=== PATIENT | female | born 1990 | race Caucasian/White ===

== ENCOUNTER 2017-10-21 20:10 | Emergency (ER) | payer OTHER, SELFPAY ==
[2017-10-21 20:11] VITALS: BP 144/85; PULSE 116; RESP 14; TEMP 36.2; O2SAT 96; BMI 31.6
--- NOTE | 2017-10-21 21:05 | ED.DCSUM_ITS ---
- ER Visit Summary Date of Service: 10/21/17 Chief Complaint: Right third finger laceration History of Present Illness: The patient is a 27 F who has a laceration on the right third finger. 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 Her last tetanus is unknown. Physical Examination: Vital signs reviewed. She has a 1.25 cm laceration on the right third finger between the DIP and PIP joints. Bleeding controlled Test Results: None performed Emergency Department Course and Treatment: I was able to look back in her last tetanus was in 2014. Lidocaine was used to anesthetize the area. 5, 5-0 simple nylon sutures were placed. Patient will have these out in 7-10 days Treatment Plan: [] Disposition: Discharge Impression: Right third finger laceration, 1.25 cm Laceration repair by ED physician This note was generated with [facility] dictation software. It may contain incorrect words, spelling, and punctuation that were not noted in review of the chart prior to signing ED Disposition - Plan for ED Patient: Chief Complaint: Laceration Referrals: Care Physician,No Primary [Primary Care Provider] -
--- NOTE | 2017-10-21 21:05 | ED.DEP ---
ED Disposition - Plan for ED Patient: Disposition: Home or Assisted Living Chief Complaint: Laceration Instructions: ED Laceration Hand Referrals: Care Physician,No Primary [Primary Care Provider] - Corporate,[facility] [GROUP OF PHYSICIANS] -
== END 2017-10-21 21:21 | disposition home or self-care (01) ==
PROVIDERS: Emergency Provider Emergency Medicine
DX: S61.212A Laceration without foreign body of right middle finger without damage to nail, initial encounter (principal); W26.8XXA Contact with other sharp object(s), not elsewhere classified, initial encounter; Y93.9 Activity, unspecified; Y92.9 Unspecified place or not applicable; Z72.0 Tobacco use
CPT/HCPCS: 12001; 99283

== ENCOUNTER 2017-10-28 21:32 | Emergency (ER) | payer MEDICAID, SELFPAY ==
[2017-10-28 21:33] VITALS: BP 112/63; PULSE 64; RESP 18; TEMP 36.8; O2SAT 97; BMI 31.6
--- NOTE | 2017-10-28 21:50 | ED.VISSUMM ---
- ER Visit Summary Date of Service: 10/28/17 Chief Complaint: Suture removal History of Present Illness: The patient is a 27 F with no primary care physician. 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 She reports that they itch and she would like them out. She denies any drainage, redness, fever, or other infectious complaints. Physical Examination: Vitals: Stable. Afebrile. General: Well-nourished and well-developed. Head: Normocephalic atraumatic. Neck: Supple, no lymphadenopathy. No JVD. Nontender. Cardiovascular: Regular rate and rhythm. No murmurs. Respiratory: No respiratory distress. Clear to auscultation bilaterally. Abdominal: Soft, nontender, nondistended, normal bowel sounds. No guarding, rebound, or peritoneal signs. Back: Nontender. Extremities: Sutures on the dorsum of her right middle finger DIP joint. There is no erythema, soft tissue swelling, or drainage. Skin: Normal color, no rash. Neurologic: Alert and oriented ?3. Cranial nerves II through XII are intact. Normal strength and sensation. Psych: Normal affect. Emergency Department Course and Treatment: I discussed with the patient the likely possibility that her wound will open if we remove these since it is over a joint. I suggested that she wait another week to have these removed. Treatment Plan: Patient will be discharged instructions follow-up her primary care physician in 1 week for suture removal. Disposition: To home in improved and stable condition. Impression: 1. Wound check right middle finger. This note was generated with [employer] dictation software. It may contain incorrect words, spelling, and punctuation that were not noted in review of the chart prior to signing ED Disposition - Plan for ED Patient: Disposition: Home or Assisted Living Chief Complaint: Suture Remv Instructions: ED Sutr Check No Infec Referrals: Corine Jacobson [NON-STAFF] - 7 Days for suture removal
[2017-10-28 22:13] VITALS: RESP 16
== END 2017-10-28 22:13 | disposition home or self-care (01) ==
LOC: ED 22:00
PROVIDERS: Emergency Provider Emergency Medicine
DX: Z48.01 Encounter for change or removal of surgical wound dressing (principal); Z72.0 Tobacco use
CPT/HCPCS: 99282

== ENCOUNTER 2017-11-04 15:57 | Emergency (ER) | payer MEDICAID, SELFPAY ==
[2017-11-04 15:58] VITALS: BP 151/97; PULSE 103; RESP 16; TEMP 37.1; O2SAT 97; BMI 35.9
--- NOTE | 2017-11-04 16:19 | ED.DCSUM_ITS ---
- ER Visit Summary Date of Service: 11/04/17 Chief Complaint: Suture removal History of Present Illness: The patient is a 27 F patient is here for suture removal. 2 weeks ago she had sutures in her right third finger. There is been no drainage. It is healing well Physical Examination: Vital signs reviewed. Right hand exam reveals right middle finger sutures numbering 5 over the distal DIP joint. No pain. Test Results: None indicated Emergency Department Course and Treatment: Sutures will be removed by nursing. Patient will follow-up as needed Treatment Plan: [] Disposition: Discharge Impression: Suture removal This note was generated with [employer] dictation software. It may contain incorrect words, spelling, and punctuation that were not noted in review of the chart prior to signing ED Disposition - Plan for ED Patient: Chief Complaint: Suture Remv Referrals: Care Physician,No Primary [Primary Care Provider] -
--- NOTE | 2017-11-04 16:19 | ED.DEP ---
ED Disposition - Plan for ED Patient: Disposition: Home or Assisted Living Chief Complaint: Suture Remv Instructions: ED Wound Check Sutr Remove No Infec Referrals: Care Physician,No Primary [Primary Care Provider] -
== END 2017-11-04 16:54 | disposition home or self-care (01) ==
PROVIDERS: Emergency Provider Emergency Medicine
DX: Z48.02 Encounter for removal of sutures (principal)
CPT/HCPCS: 99283

== ENCOUNTER 2017-12-07 00:47 | Emergency (ER) | payer MEDICAID, SELFPAY ==
[2017-12-07 00:48] VITALS: BP 134/95; PULSE 99; RESP 15; TEMP 36.9; O2SAT 99; BMI 32.5
[2017-12-07] MEDS: 0.9% Normal Saline 1,000 ML 1000 ML IV (01:25)
[2017-12-07] MEDS: Ketorolac 30 MG/ML Syringe IV (01:25)
[2017-12-07 01:38] LABS: Red Blood Cells-Urine 0 SEEN /hpf (0-5); White Blood Cells 0 SEEN /hpf (0-5)
[2017-12-07 01:40] LABS: Color, Urine Yellow (Yellow); Glucose, Dipstick Normal (Normal); Ketone-Dipstick Negative (Negative); Leukocyte Esterase-Dipstick Negative /ul (Negative); Nitrite-Dipstick Negative (Negative); Occult Blood-Urine Negative /ul (Negative); Protein-Dipstick Negative (Negative); Specific Gravity, Urine 1.015 (1.002-1.030); Urine Bilirubin Dipstick Negative (Negative); Urine Clarity Clear (Clear); Urine Urobilinogen Normal (Normal)
[2017-12-07 01:42] LABS: Internal QC Validated? YES +Cl - CLEAR BKGD
[2017-12-07 01:42] LABS: Absolute Lymphocyte Count 1.65 X10^3/ul (0.83-4.51); Absolute Neutrophil Count 6.6 X10^3/uL (2.0-7.7); Basophil# 0.05 X10^3/uL; Basophil% 0.6 % (0-1); Eosinophil# 0.02 X10^3/uL; Eosinophils% 0.2 % (0-5); Hematocrit 40.7 % (37-47); Lymphocyte # 1.65 X10^3/ul (4.0); Lymphocyte % 18.2 % (19-41); Mean Corp Hgb Conc 34.4 g/gl (32-36); Mean Corpuscular Hgb 31.2 pg (27.0-32.0); Mean Corpuscular Volume 90.6 fL (81-99); Mean Platelet Vol. 11.2 fl (6.2-12.0); Monocyte# 0.67 X10^3/uL; Monocyte% 7.4 % (0-10); Neutrophil # 6.62 X10^3/uL (2.7-7.7); Neutrophil % 72.9 % (47-70); Platelet Count 293 K/mm3 (150-450); RBC Distribution Width CV 14.3 % (11.6-14.6); RBC Distribution Width SD 47.2 fl (35.1-43.9); Red Blood Count 4.49 M/mm3 (4.2-5.4); White Blood Count 9.1 K/mm3 (4.4-11.0)
[2017-12-07 01:43] LABS: POSITIVE COUNT NO; POSITIVE DIFFERENTIAL NO; POSITIVE MORPHOLOGY NO
[2017-12-07 01:43] LABS: Pregnancy, Urine Negative Negative
[2017-12-07 01:47] LABS: Bacteria RARE /hpf (None Seen); Mucous, Urine 1+ /hpf (<or=2+); Squamous Epithelial Cells - UA 0-5 SEEN /hpf (5-10)
[2017-12-07 01:57] LABS: Anion Gap 6 (5-15); BUN 9 mg/dL (7-18); BUN/Creat Ratio 12.9 RATIO (10-20); Calcium,Total 8.6 mg/dL (8.5-10.1); Chloride 106 mmol/L (98-107); EST Glomerular Filtration Rate 107 mL/min (>60); Est Glom Filt Rate - Afr Amer 129 mL/min (>60); Estimated Creatinine Clearance 103.32 ml/min; Glucose 116 mg/dL (74-106); Potassium 4.3 mmol/L (3.5-5.1); Sodium Level 140 mmol/L (136-145)
--- NOTE | 2017-12-07 02:53 | ED.VISSUMM ---
- ER Visit Summary Date of Service: 12/07/17 Chief Complaint: [Right flank pain] History of Present Illness: The patient is a 27 F [the presents with intermittent right flank pain she states radiating around to her right abdomen continuously for the last several hours. She denies any fall or trauma. No hematuria or frequency or dysuria. No fevers. Patient overall appears well and nontoxic. No other complaints.] Physical Examination: [General: The patient appears well and in no apparent distress. Patient is resting comfortably on cart. Skin: Warm, dry, no pallor noted. No rash. Head: Normocephalic, atraumatic Neck: Supple, nontender. ENT: Moist mucus membranes, pharynx within normal limits. Cardiovascular: Regular Rate and Rhythm, no gallups or rubs Respiratory: Patient is in no distress, no accessory muscle use, lungs are clear to auscultation, no wheezing, rales or rhonchi Musculoskeletal: normal ROM, no deformity, no tenderness, no swelling. 2+ radial and DP pulses symmetric. GI: No tenderness to palpation, no masses appreciated. No rebound, guarding, or rigidity noted. No hernia or mass. No pulsatile mass. No right lower quadrant tenderness. Back: Right paraspinal lumbar tenderness on exam only. No spinal tenderness. No CVA tenderness. Neurological: A&O, normal strength and sensation. 5/5 bilateral lower extremity strength intact. Sensation normal. Gait normal. Psychiatric: Cooperative] Test Results: [Bloodwork overall unremarkable. Urinalysis not consistent with infection. No significant red cells. test negative. CT imaging of the abdomen and pelvis without contrast shows no acute process.] Emergency Department Course and Treatment: [Patient given fluids and pain medication here with improvement of symptoms. CT imaging shows no acute process. Blood work and urinalysis overall unremarkable. On reevaluation at 0250 she is resting quietly and feels improved. Abdominal exam remains soft, nontender, and nondistended. Her pain is reproducible with movement of her torso. I feel it may be consistent with musculoskeletal etiology. I described abdominal pain return precautions and she will follow closely with her primary provider. Patient understands and is agreeable with this plan of care. Patient was discharged home in stable and improved condition.] Treatment Plan: [See above] Disposition: [Discharge home, stable and improved condition] Impression: [Acute right flank pain -improved] This note was generated with [employer] dictation software. It may contain incorrect words, spelling, and punctuation that were not noted in review of the chart prior to signing ED Disposition - Plan for ED Patient: Disposition: Home or Assisted Living Chief Complaint: Flank Pain Instructions: ED Flank Pain Uncertain Cause Referrals: Codi Honeycutt MD [STAFF PHYSICIAN] -
[2017-12-07 02:58] VITALS: RESP 14
== END 2017-12-07 03:13 | disposition home or self-care (01) ==
PROVIDERS: Emergency Provider Emergency Medicine
DX: R10.9 Unspecified abdominal pain (principal); E66.9 Obesity, unspecified; M54.9 Dorsalgia, unspecified
CPT/HCPCS: 74176; 80048; 81001; 81025; 85025; 96361; 96374; 99283; J7030

== ENCOUNTER 2018-03-19 21:00 | Emergency (ER) | payer MEDICAID, SELFPAY ==
[2018-03-19 21:02] VITALS: BP 135/109; PULSE 99; RESP 16; TEMP 37.1; O2SAT 98; BMI 31.6
--- NOTE | 2018-03-19 21:11 | ED.VISSUMM ---
- ER Visit Summary Date of Service: 03/19/18 Chief Complaint: [Cough] History of Present Illness: The patient is a 27 F [presents with a cough that started 2 weeks ago. Patient coughing up green and yellow phlegm. Patient denies any fever, chills, or sweats. Patient states that everybody at work is been sick with similar symptoms. Patient denies any shortness of breath. She denies any sore throat or ear pain. She denies any chest pain.] Physical Examination: [HEENT-PERRLA, EOMI. Cranial nerves II through XII grossly intact. TMs clear. Mucous membranes moist. No adenopathy. Cardiovascular-regular rate and rhythm without murmur or ectopy Lungs-clear to auscultation, chest wall stable without crepitus or subcu emphysema Abdomen-normoactive bowel sounds, soft, nontender, no rebound or rigidity, no peritoneal signs. Extremities-intact ?4, normal range of motion, normal pulses, atraumatic] Test Results: [None indicated] Emergency Department Course and Treatment: [Patient was started on Zithromax] Treatment Plan: [Patient will be treated Zithromax and Tessalon Perles given that she is had symptoms for over 2 weeks] Disposition: [Discharged home in stable condition. 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 Patient advised to return if increasing shortness of breath or condition should worsen anyway.] Impression: [Bronchitis] This note was generated with [employer] dictation software. It may contain incorrect words, spelling, and punctuation that were not noted in review of the chart prior to signing ED Disposition - Plan for ED Patient: Chief Complaint: Cold Sx Referrals: Care Physician,No Primary [Primary Care Provider] -
--- NOTE | 2018-03-19 21:12 | ED.DEP ---
ED Disposition - Plan for ED Patient: Chief Complaint: Cold Sx Instructions: ED Upper Resp Infec Abx Tx Prescriptions: Azithromycin [Zithromax] 250 mg PO DAILY #4 tab Benzonatate [Tessalon Perle] 200 mg PO TID PRN PRN #20 cap PRN Reason: Cough Referrals: Care Physician,No Primary [Primary Care Provider] - Wild Oden DO [NON CLINICAL AFFILIATE] - 5-7 Days
[2018-03-19 21:19] VITALS: PULSE 99; RESP 18
[2018-03-19] MEDS: Azithromycin 250 MG Tablet 500 MG PO (21:19)
--- OUTSIDE RECORDS SUMMARY | 2018-05-15 04:46 | XMS RPT_ITS ---
:1990 Author Organization [facility] Care Team Providers Name Role Phone Primay Care Physicia, No Primary Care Unavailable Wesley Blair Attending Unavailable Primay Care Physicia, No Primary Care Unavailable Danny Canales Attending Unavailable Primay Care Physicia, No Primary Care Unavailable Wesley Blair Attending Unavailable Primay Care Physicia, No Primary Care Unavailable Homar Garcia Attending Unavailable Primay Care Physicia, No Primary Care Unavailable Oksana Caruso Attending Unavailable PROBLEMS PROBLEMS DATE TYPE CONDITION / CODE ATTENDING STATUS SOURCE 11/05/2017 Unknown Z48.02 - Danny Canales Active [place] Encounter for Community removal of Hospital sutures / Repository Z48.02(ICD-10) 10/29/2017 Unknown S61.212A - Wesley Blair Active [place] Laceration Community without foreign Hospital body of right Repository middle finger without damage to nail, initial encounter / S61.212A(ICD-10) PROCEDURES PROCEDURES No Procedure Records FoundRESULTS RESULTS DISCHARGE INSTRUCTION Observed: 03/19/2018 Status: F Source: [place] 9:13 PM [facility] REPOSITORY [facility] Medical Records Department [address] [place] [address] Discharge Instruction 03/19/182111 MR#: [id number] Acct: [id number] Name: KERI LOPEZ Rep #: [id number] : 1990 From: Oksana Caruso DO PCP: Care Physician, No Primary Status: PRE ER ED Disposition - Plan for ED Patient: Chief Complaint: Cold Sx Instructions: ED Upper Resp Infec Abx Tx Prescriptions: Azithromycin [Zithromax] 250 mg PO DAILY #4 tab Benzonatate [Tessalon Perle] 200 mg PO TID PRN PRN #20 cap PRN Reason: Cough Referrals: Care Physician,No Primary [Primary Care Provider] - Wild Oden DO [NON CLINICAL AFFILIATE] - 5-7 Days What to do if you have Problems For any increased pain, shortness of breath, bleeding, nausea or vomiting, chest pain, or any unexpected problems, contact your Primary Care Provider. Call [facility] ([phone]) or report to the closest Emergency Room. Call 911 if necessary. 03/19/182112 <Electronically signed by Oksana Caruso DO> Date Oksana Caruso DO Cosigner Signature (If Indicated): Date CC: No Primary Care Physician EMERGENCY DEPARTMENT Observed: 03/19/2018 Status: F Source: [place] SUMMARY 9:12 PM [facility] [place] [facility] Medical Records Department [address] [place] [address] Emergency Department Summary 03/19/182110 MR#: [id number] Acct: [id number] Name: KERI LOPEZ Rep #: [id number] : 1990 From: Oksana Caruso DO PCP: Care Physician, No Primary Status: PRE ER - ER Visit Summary Date of Service: 03/19/18 Chief Complaint: [Cough] History of Present Illness: The patient is a 27 F [presents with a cough that started 2 weeks ago. Patient coughing up green and yellow phlegm. Patient denies any fever, chills, or sweats. Patient states that everybody at work is been sick with similar symptoms. Patient denies any shortness of breath. She denies any sore throat or ear pain. She denies any chest pain.] Physical Examination: [HEENT-PERRLA, EOMI. Cranial nerves II through XII grossly intact. TMs clear. Mucous membranes moist. No adenopathy. Cardiovascular-regular rate and rhythm without murmur or ectopy Lungs-clear to auscultation, chest wall stable without crepitus or subcu emphysema Abdomen-normoactive bowel sounds, soft, nontender, no rebound or rigidity, no peritoneal signs. Extremities-intact 4, normal range of motion, normal pulses, atraumatic] Test Results: [None indicated] Emergency Department Course and Treatment: [Patient was started on Zithromax] Treatment Plan: [Patient will be treated Zithromax and Tessalon Perles given that she is had symptoms for over 2 weeks] Disposition: [Discharged home in stable condition. Patient referred to primary care physician diamond setter apprentice for no doc to follow-up within next 5-7 days. Patient advised to return if increasing shortness of breath or condition should worsen anyway.] Impression: [Bronchitis] This note was generated with Bandspeed dictation software. It may contain incorrect words, spelling, and punctuation that were not noted in review of the chart prior to signing ED Disposition - Plan for ED Patient: Chief Complaint: Cold Sx Referrals: Care Physician,No Primary [Primary Care Provider] - What to do if you have Problems For any increased pain, shortness of breath, bleeding, nausea or vomiting, chest pain, or any unexpected problems, contact your Primary Care Provider. Call [facility] ([phone]) or report to the closest Emergency Room. Call 911 if necessary. 03/19/182111 <Electronically signed by Oksana Caruso DO> Date Oksana Caruso DO Cosigner Signature (If Indicated): Date CC: No Primary Care Physician EMERGENCY DEPARTMENT Observed: 12/07/2017 Status: F Source: [place] SUMMARY 2:57 AM [facility] [place] [facility] Medical Records Department [address] [place] [address] Emergency Department Summary 12/07/17 0253 MR#: [id number] Acct: [id number] Name: KERI LOPEZ Rep #: [id number] : 1990 27 From: Foreign Garcia MD PCP: Care Physician, No Primary Status: REG ER - ER Visit Summary Date of Service: 12/07/17 Chief Complaint: [Right flank pain] History of Present Illness: The patient is a 27 F [the presents with intermittent right flank pain she states radiating around to her right abdomen continuously for the last several hours. She denies any fall or trauma. No hematuria or frequency or dysuria. No fevers. Patient overall appears well and nontoxic. No other complaints.] Physical Examination: [General: The patient appears well and in no apparent distress. Patient is resting comfortably on cart. Skin: Warm, dry, no pallor noted. No rash. Head: Normocephalic, atraumatic Neck: Supple, nontender. ENT: Moist mucus membranes, pharynx within normal limits. Cardiovascular: Regular Rate and Rhythm, no gallups or rubs Respiratory: Patient is in no distress, no accessory muscle use, lungs are clear to auscultation, no wheezing, rales or rhonchi Musculoskeletal: normal ROM, no deformity, no tenderness, no swelling. 2+ radial and DP pulses symmetric. GI: No tenderness to palpation, no masses appreciated. No rebound, guarding, or rigidity noted. No hernia or mass. No pulsatile mass. No right lower quadrant tenderness. Back: Right paraspinal lumbar tenderness on exam only. No spinal tenderness. No CVA tenderness. Neurological: A AND O, normal strength and sensation. 5/5 bilateral lower extremity strength intact. Sensation normal. Gait normal. Psychiatric: Cooperative] Test Results: [Bloodwork overall unremarkable. Urinalysis not consistent with infection. No significant red cells. test negative. CT imaging of the abdomen and pelvis without contrast shows no acute process.] Emergency Department Course and Treatment: [Patient given fluids and pain medication here with improvement of symptoms. CT imaging shows no acute process. Blood work and urinalysis overall unremarkable. On reevaluation at 0250 she is resting quietly and feels improved. Abdominal exam remains soft, nontender, and nondistended. Her pain is reproducible with movement of her torso. I feel it may be consistent with musculoskeletal etiology. I described abdominal pain return precautions and she will follow closely with her primary provider. Patient understands and is agreeable with this plan of care. Patient was discharged home in stable and improved condition.] Treatment Plan: [See above] Disposition: [Discharge home, stable and improved condition] Impression: [Acute right flank pain -improved] This note was generated with Bandspeed dictation software. It may contain incorrect words, spelling, and punctuation that were not noted in review of the chart prior to signing ED Disposition - Plan for ED Patient: Disposition: Home or Assisted Living Chief Complaint: Flank Pain Instructions: ED Flank Pain Uncertain Cause Referrals: Codi Honeycutt MD [STAFF PHYSICIAN] - What to do if you have Problems For any increased pain, shortness of breath, bleeding, nausea or vomiting, chest pain, or any unexpected problems, contact your Primary Care Provider. Call [facility] ([phone]) or report to the closest Emergency Room. Call 911 if necessary. 12/07/17256 <Electronically signed by Foreign Garcia MD> Date Foreign Garcia MD Cosigner Signature (If Indicated): Date CC: No Primary Care Physician CBC W/DIFF, AUTOMATED Collected: 12/07/2017 Status: F Source: [place] 1:27 AM [facility] [place] TYPE CODE TESTS RESULT OUT OF RANGE REFERENCE UNITS LAB L100.1000 4.4-11.0 K/mm3 Normal WBC 9.1 LAB L100.1200 4.2-5.4 M/mm3 Normal RBC 4.49 LAB L100.1300 12.0-15.0 g/dl Normal HGB 14.0 LAB L100.1400 37-47 % Normal HCT 40.7 LAB L100.1500 81-99 fL Normal MCV 90.6 LAB L100.1600 27.0-32.0 pg Normal MCH 31.2 LAB L100.1700 32-36 g/gl Normal MCHC 34.4 LAB L100.1810 11.6-14.6 % Normal RDW CV 14.3 LAB L100.1820 35.1-43.9 fl High RDW SD 47.2 LAB L100.1900 150-450 K/mm3 Normal PLT 293 LAB L100.2000 6.2-12.0 fl Normal MPV 11.2 LAB L100.2100 47-70 % High NEUT% 72.9 LAB L100.2200 19-41 % Low LY% 18.2 LAB L100.2300 0-10 % Normal MONO% 7.4 LAB L100.2400 0-5 % Normal EO% 0.2 LAB L100.2500 0-1 % Normal BASO% 0.6 LAB L100.2550 0.0-0.9 % Normal IM GRAN % 0.700 Result Comment: IG% - Immature Granulocytes (promyelocytes, myelocytes and metamyelocytes) > 1% indicates that a LEFT SHIFT is Present. LAB L100.2620 2.0-7.7 X10 3/uL Normal Absolute Neut 6.6 LAB L100.2720 0.83-4.51 X10 3/ul Normal Absolute Lymph 1.65 Performed By: #### L100.0100 #### [facility] [address] [place], [address] BASIC METABOLIC Collected: 12/07/2017 Status: F Source: [place] PROFILE (BMP) 1:27 AM [facility] [place] TYPE CODE TESTS RESULT OUT OF RANGE REFERENCE UNITS LAB L501.0100 74-106 mg/dL High GLU 116 Result Comment: Fasting Glucose result from 100 to 125 mg/dL suggests IMPAIRED HOMEOSTASIS per A.D.A. criteria. Please note revised GLUCOSE reference range effective 2017. LAB L501.1000 7-18 mg/dL Normal BUN 9 LAB L501.1100 0.55-1.02 mg/dL Normal CREAT,SERUM 0.70 Result Comment: The validity of the calculated GFR AND GFRAA in patients over 70 years has not been determined. Clinical correlation is essential. LAB L501.1110 >60 mL/min Normal EST GFR 107 Result Comment: Non- GFR Calc LAB L501.1115 >60 mL/min Normal EST GFR - AA 129 Result Comment: GFR Calc LAB L501.1255 ml/min Normal Estimated CRCL 103.32 LAB L501.1300 10-20 RATIO BUN/CRE Normal 12.9 LAB L501.2200 8.5-10 mg/dL .1 CA Normal 8.6 LAB L501.5300 136-14 mmol/L 5 NA Normal 140 LAB L501.5600 3.5-5. mmol/L 1 K Normal 4.3 LAB L501.5900 98-107 mmol/L CL Normal 106 LAB L501.6100 21.0-3 mmol/L 2.0 CO2 Normal 28.0 LAB L501.6200 5-15 GAP Normal 6 Performed By: #### L500.2500 #### [facility] [address] [place], [address] ABDOMEN/PELVIS WITHOUT Observed: 12/07/2017 Status: F Source: [place] CONT 1:07 AM [facility] [place] [facility] Imaging Services [address] [place] [address] Abdomen/Pelvis without Cont MR#: [id number] Acct: [id number] Name: KERI LOPEZ Rep #: [id number] : 1990 F 27 From: Katheryn Albright MD PCP: Care Physician, No Primary Status: REG ER Study: Abdomen/Pelvis without Cont Date of Exam: 12/07/17 Exam# [id number] Ordering Dr: Foreign Garcia MD STUDY: CT ABDOMEN AND PELVIS WITHOUT CONTRAST REASON FOR EXAM: Female, 27 years old. Right-sided flank pain for one day. RADIATION DOSAGE (If Supplied By Facility): CTDIvol = ( 10.98 ) mGy, DLP = ( 548.87 ) mGycm TECHNIQUE: Transaxial images were obtained from the dome of the diaphragm to the symphysis pubis without oral contrast, and without intravenous contrast. Sagittal and coronal images were reconstructed. Individualized dose optimization techniques were used for this CT. COMPARISON: CT of the abdomen and pelvis dated December 14, 2012. FINDINGS: The visualized lung bases are unremarkable. The visualized portions of the heart are within normal limits. 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 The gallbladder is contracted. Normal spleen. Normal pancreas. Normal bilateral adrenal glands. Normal right kidney. Normal left kidney. Normal visualized stomach. There is no evidence for dilated bowel, ascites or pneumoperitoneum. The small bowel has a grossly normal appearance. Stool is visible throughout the colon with scattered diverticula. The appendix is visualized and appears normal. Normal abdominal aorta. Normal inferior vena cava. Normal retroperitoneum. Normal urinary bladder. Normal visualized uterus. There is a small umbilical hernia containing fat. Normal osseous structures. CT/Abdomen/Pelvis without Cont IMPRESSION: No CT evidence of acute intra-abdominal disease. Electronically Signed: Katheryn Albright MD at 2:36 EDT , Service support , CC: No Primary Care Physician; Homar Garcia MD Die Attaching Machine Tender: Signed ,URINE Collected: 12/07/2017 Status: F Source: [place] 12:52 AM [facility] [place] [facility] Order Comment: Order Date: 12/07/17 TYPE CODE TESTS RESULT OUT OF REFERENCE UNITS RANGE LAB L400.8000 Negative Normal HCGUQUAL Negative Result Comment: Very dilute urine specimens, as indicated by a low specific gravity, may not contain dental detail representative levels of hCG. If is still suspected, a first morning urine specimen should be collected 48 hours later and tested. Performed By: #### L400.7600 #### [facility] [address] [place], [address] URINALYSIS, COMPLETE Collected: 12/07/2017 Status: F Source: [place] 12:52 AM [facility] [place] [facility] Order Comment: Order Date: 12/07/17 How was Urine Obtained? CLEAN CATCH TYPE CODE TESTS RESULT OUT OF RANGE REFERENCE UNITS LAB L400.3000 Yellow COLOR Normal Yellow LAB L400.3050 Clear Normal CLARITY Clear LAB L400.3200 Normal mg/dl Normal GLUCOSE, UR Normal LAB L400.3300 Negative mg/dL Normal BILIRUBIN URINE Negative LAB L400.3400 Negative mg/dl Normal KETONE UR Negative LAB L400.3465 1.002-1.030 Normal SP.GR. DIPSTX 1.015 LAB L400.3550 5.0 - 8.0 pH UR Normal 8.0 LAB L400.3600 Negative mg/dl PROT Normal DIPSTX Negative LAB L400.3700 Normal mg/dl Normal UROBILI Normal LAB L400.3750 Negative Normal NITRITE UR Negative LAB L400.3780 Negative /ul Normal OCCULT BLOOD-UR Negative LAB L400.3800 Negative /ul LEUK Normal ESTERASE Negative LAB L400.4050 0-5 /hpf WBC 0 Normal SEEN LAB L400.4100 0-5 /hpf 0 Normal RBC-UA SEEN LAB L400.4150 5-10 /hpf SQUAM Normal EPI 0-5 SEEN LAB L400.4300 None Seen /hpf Normal BACTERIA RARE LAB L400.4350 <or=2+ /hpf 1+ Normal MUCUS, URINE Performed By: #### L400.0001 #### [facility] [address] [place], [address] EMERGENCY DEPARTMENT Observed: 11/04/2017 Status: F Source: [place] SUMMARY 4:19 PM [facility] [place] [facility] Medical Records Department [address] [place] [address] Emergency Department Summary 11/04/171617 MR#: [id number] Acct: [id number] Name: KERI LOPEZ Rep #: [id number] : 1990 27 From: Wesley Blair MD PCP: Last Physician, No Primary Status: PRE ER - ER Visit Summary Date of Service: 11/04/17 Chief Complaint: Suture removal History of Present Illness: The patient is a 27 F patient is here for suture removal. 2 weeks ago she had sutures in her right third finger. There is been no drainage. It is healing well Physical Examination: Vital signs reviewed. Right hand exam reveals right middle finger sutures numbering 5 over the distal DIP joint. No pain. Test Results: None indicated Emergency Department Course and Treatment: Sutures will be removed by nursing. Patient will follow-up as needed Treatment Plan: [] Disposition: Discharge Impression: Suture removal This note was generated with Bandspeed dictation software. It may contain incorrect words, spelling, and punctuation that were not noted in review of the chart prior to signing ED Disposition - Plan for ED Patient: Chief Complaint: Suture Remv Referrals: Care Physician,No Primary [Primary Care Provider] - What to do if you have Problems For any increased pain, shortness of breath, bleeding, nausea or vomiting, chest pain, or any unexpected problems, contact your Primary Care Provider. Call [facility] ([phone]) or report to the closest Emergency Room. Call 911 if necessary. 11/04/171618 <Electronically signed by Wesley Blair MD> Date Wesley Blair MD Cosigner Signature (If Indicated): Date CC: No Primary Care Physician DISCHARGE INSTRUCTION Observed: 11/04/2017 Status: F Source: [place] 4:19 PM [facility] [place] [facility] Medical Records Department [address] [place] [address] Discharge Instruction 11/04/171618 MR#: [id number] Acct: [id number] Name: KERI LOPEZ Rep #: [id number] : 1990 27 From: Wesley Blair MD PCP: Last Physician, No Primary Status: PRE ER ED Disposition - Plan for ED Patient: Disposition: Home or Assisted Living Chief Complaint: Suture Remv Instructions: ED Wound Check Sutr Remove No Infec Referrals: Care Physician,No Primary [Primary Care Provider] - What to do if you have Problems For any increased pain, shortness of breath, bleeding, nausea or vomiting, chest pain, or any unexpected problems, contact your Primary Care Provider. Call [facility] ([phone]) or report to the closest Emergency Room. Call 911 if necessary. 11/04/171618 <Electronically signed by Wesley Blair MD> Date Wesley Blair MD Cosigner Signature (If Indicated): Date CC: No Primary Care Physician EMERGENCY DEPARTMENT Observed: 10/29/2017 Status: F Source: [place] SUMMARY 12:07 [facility] Medical Records Department [address] [place] [address] Emergency Department Summary 10/28/17 2150 MR#: [id number] Acct: [id number] Name: KERI LOPEZ Rep #: [id number] : 1990 27 From: Danny Canales MD PCP: Last Physician, No Primary Status: DEP ER - ER Visit Summary Date of Service: 10/28/17 Chief Complaint: Suture removal History of Present Illness: The patient is a 27 F with no primary care physician. She reports that she had sutures placed in her right middle finger 1 week ago when she cut on a meat butcher. She reports that they itch and she would like them out. She denies any drainage, redness, fever, or other infectious complaints. Physical Examination: Vitals: Stable. Afebrile. General: Well-nourished and well-developed. Head: Normocephalic atraumatic. Neck: Supple, no lymphadenopathy. No JVD. Nontender. Cardiovascular: Regular rate and rhythm. No murmurs. Respiratory: No respiratory distress. Clear to auscultation bilaterally. Abdominal: Soft, nontender, nondistended, normal bowel sounds. No guarding, rebound, or peritoneal signs. Back: Nontender. Extremities: Sutures on the dorsum of her right middle finger DIP joint. There is no erythema, soft tissue swelling, or drainage. Skin: Normal color, no rash. Neurologic: Alert and oriented 3. Cranial nerves II through XII are intact. Normal strength and sensation. Psych: Normal affect. Emergency Department Course and Treatment: I discussed with the patient the likely possibility that her wound will open if we remove these since it is over a joint. I suggested that she wait another week to have these removed. Treatment Plan: Patient will be discharged instructions follow- up her primary care physician in 1 week for suture removal. Disposition: To home in improved and stable condition. Impression: 1. Wound check right middle finger. This note was generated with Bandspeed dictation software. It may contain incorrect words, spelling, and punctuation that were not noted in review of the chart prior to signing ED Disposition - Plan for ED Patient: Disposition: Home or Assisted Living Chief Complaint: Suture Remv Instructions: ED Sutr Check No Infec Referrals: Corine Jacobson [NON-STAFF] - 7 Days for suture removal What to do if you have Problems For any increased pain, shortness of breath, bleeding, nausea or vomiting, chest pain, or any unexpected problems, contact your Primary Care Provider. Call [facility] ([phone]) or report to the closest Emergency Room. Call 911 if necessary. 10/29/17 0007 <Electronically signed by Danny Canales MD> Date Danny Canales MD Cosigner Signature (If Indicated): Date CC: No Primary Care Physician DISCHARGE INSTRUCTION Observed: 10/21/2017 Status: F Source: [place] 9:06 PM [facility] [place] [facility] Medical Records Department [address] [place] [address] Discharge Instruction 10/21/172104 MR#: [id number] Acct: [id number] Name: KERI LOPEZ Jesus Rep #: [id number] : 1990 27 From: Wesley Blair MD PCP: Last Physician, No Primary Status: REG ER ED Disposition - Plan for ED Patient: Disposition: Home or Assisted Living Chief Complaint: Laceration Instructions: ED Laceration Hand Referrals: Care Physician,No Primary [Primary Care Provider] - Corporate,Care [GROUP OF PHYSICIANS] - What to do if you have Problems For any increased pain, shortness of breath, bleeding, nausea or vomiting, chest pain, or any unexpected problems, contact your Primary Care Provider. Call [facility] Registry ([phone]) or report to the closest Emergency Room. Call 911 if necessary. 10/21/172105 <Electronically signed by Wesley Blair MD> Date Wesley Blair MD Cosigner Signature (If Indicated): Date CC: No Primary Care Physician EMERGENCY DEPARTMENT Observed: 10/21/2017 Status: F Source: [place] SUMMARY 9:05 PM [facility] REPOSITORY [facility] Medical Records Department [address] [place] [address] Emergency Department Summary 10/21/172103 MR#: [id number] Acct: [id number] Name: KERI LOPEZ Jesus Rep #: [id number] : 1990 27 From: Wesley Blair MD PCP: Last Physician, No Primary Status: REG ER - ER Visit Summary Date of Service: 10/21/17 Chief Complaint: Right third finger laceration History of Present Illness: The patient is a 27 F who has a laceration on the right third finger. She cut it while cutting a meat butcher. Her last tetanus is unknown. Physical Examination: Vital signs reviewed. She has a 1.25 cm laceration on the right third finger between the DIP and PIP joints. Bleeding controlled Test Results: None performed Emergency Department Course and Treatment: I was able to look back in her last tetanus was in 2014. Lidocaine was used to anesthetize the area. 5, 5-0 simple nylon sutures were placed. Patient will have these out in 7-10 days Treatment Plan: [] Disposition: Discharge Impression: Right third finger laceration, 1.25 cm Laceration repair by ED physician This note was generated with Bandspeed dictation software. It may contain incorrect words, spelling, and punctuation that were not noted in review of the chart prior to signing ED Disposition - Plan for ED Patient: Chief Complaint: Laceration Referrals: Care Physician,No Primary [Primary Care Provider] - What to do if you have Problems For any increased pain, shortness of breath, bleeding, nausea or vomiting, chest pain, or any unexpected problems, contact your Primary Care Provider. Call [facility] ([phone]) or report to the closest Emergency Room. Call 911 if necessary. 10/21/17 8460 <Electronically signed by Wesley Blair MD> Date Wesley Blair MD Cosigner Signature (If Indicated): Date CC: No Primary Care Physician ALLERGIES ALLERGIES DATE TYPE / CODE NAME / CODE REACTION SEVERITY SOURCE 03/19/2018 Drug Penicillins Hives Unknown [place] Allergy/[id number](S /[id number] [facility]) (RXNORM) Hospital Repository 03/19/2018 Drug latex/F0060 Rash Unknown [place] Allergy/255540272(S 16560(RXNOR Community NOMED CT) M) Hospital Repository 03/19/2018 Miscellaneous BEE STING Anaphylaxis Unknown [place] Allergy/533282794(S [facility] NOMED CT) Hospital Repository ENCOUNTERS ENCOUNTERS ADMIT/DISCHARGE ACCOUNT ADMITTING ENCOUNTER LOCATION SOURCE NUMBER CLASS 03/19/2018/ [id number] Emergency [address] ing:ED Repository 12/07/2017/ [id number] Emergency [address] ing:ED Repository 11/04/2017/ [id number] Emergency [address] ing:ED Repository 10/28/2017/ [id number] Emergency [address] ing:ED Repository 10/21/2017/ [id number] Emergency [address] ing:ED Repository PAYERS PAYERS ENCOUNTER GUARANTOR PAYER SUBSCRIBER SOURCE 03/19/2018 KERI [id number] Primary KERI N WARDDOB: Indira EASTERN Insurance:CARESOURCEP [id number] [facility] Number: Hospital [id number]: 330 [id number] Repository [phone] () Date:2018-03-19[address]ATTN: [place] [address]FA: 03/19/2018 Secondary NOT GIVENUNK Ind[place] Insurance:SELF PAY [facility] Number: Effective Repository Date:2018-03-19 12/07/2017 KERI Jesus [id number] Primary KERI N WARDDOB: Indira EASTERN Insurance:CARESOURCEP [id number] [facility] Number: [facility] [address]Tkq: [phone] [id number] Repository [phone] () Date:2017-12-07[address]ATTN: [place] [address]FY: 12/07/2017 Secondary NOT GIVENUNK [place] Insurance:SELF PAY [facility] Number: Effective Repository Date:2017-12-07 11/04/2017 KERI Lee [id number] Primary KERI N WARDDOB: Indira EASTERN Insurance:CARESOURCEP [id number] Hospital [address]Kwy: [phone] [id number] Repository [phone] (HP) Date:2017-11-04[address]ATTN: [place] [address]QH: 11/04/2017 Secondary NOT GIVENUNK [place] Insurance:SELF PAY [facility] Number: Effective Repository Date:2017-11-04 10/28/2017 KERI LOPEZ101 Primary KERI N WARDDOB: Indira EASTERN Insurance:OBWC [id number] [address]Kff: (140) Number: Repository [phone] () [id number] Date:5256-65-11[address], [place] [address]BS: 10/28/2017 Secondary NOT GIVENUNK [place] Insurance:SELF PAY [facility] Number: Effective Repository Date:2017-10-28 10/21/2017 KERI LOPEZ101 Primary KERI N WARDDOB: [place]AST[place] Insurance:OBWC [id number] [address]Ksa: ([phone]) Number: Repository [phone] () [id number] Date:[id number], [place] [address]LW: 10/21/2017 Secondary NOT GIVENUNK [place] Insurance:SELF PAY [facility] Number: Effective Repository Date:2017-10-21
== END 2018-03-19 21:20 | disposition home or self-care (01) ==
LOC: ED 21:19
PROVIDERS: Emergency Provider Emergency Medicine
DX: J40 Bronchitis, not specified as acute or chronic (principal); Z72.0 Tobacco use
CPT/HCPCS: 99283

== ENCOUNTER → 2018-04-23 16:27 | Outpatient (CLI) | payer MEDICAID, SELFPAY ==
[2018-04-28 16:47] LABS: HPV Reflexed? NOT INDICATED
== END ==
PROVIDERS: Visit Provider Obstetrics & Gynecology
DX: Z12.4 Encounter for screening for malignant neoplasm of cervix (principal)
CPT/HCPCS: 88175; G0145

== ENCOUNTER 2018-06-14 11:46 | Emergency (ER) | payer MEDICAID, SELFPAY ==
[2018-06-14 11:49] VITALS: BP 121/89; PULSE 103; RESP 16; TEMP 36.4; O2SAT 97; BMI 30.7
[2018-06-14 12:16] VITALS: BP 118/70; PULSE 95; RESP 14; O2SAT 98
--- NOTE | 2018-06-14 12:17 | ED.DCSUM_ITS ---
- ER Visit Summary Date of Service: 06/14/18 Chief Complaint: Laceration History of Present Illness: The patient is a 27 F who incised her left index finger with a knife while cutting daniel lettuce today. Tetanus is up-to-date. Physical Examination: Afebrile vital signs stable There is a 1.5 cm linear laceration over the dorsum of the left index finger. It gapes with bending. There are vascular intact. Emergency Department Course and Treatment: Wound was locally anesthetized using 1% lidocaine. It was washed with Shur-Clens. Explored. Closed using a total of 3 simple interrupted 5-0 simple interrupted Ethilon sutures. Stitches to removed in 10 days Impression: 1. 1.5 cm left index finger laceration with repair This note was generated with [employer] dictation software. It may contain incorrect words, spelling, and punctuation that were not noted in review of the chart prior to signing ED Disposition - Plan for ED Patient: Disposition: Home or Assisted Living Instructions: ED Laceration Hand Referrals: [facility] [GROUP OF PHYSICIANS] - 10 Day for suture removal
== END 2018-06-14 12:36 | disposition home or self-care (01) ==
LOC: ED 12:32
PROVIDERS: Emergency Provider Emergency Medicine
DX: S61.211A Laceration without foreign body of left index finger without damage to nail, initial encounter (principal); Z72.0 Tobacco use; W26.0XXA Contact with knife, initial encounter; Y93.G1 Activity, food preparation and clean up; Y92.009 Unspecified place in unspecified non-institutional (private) residence as the place of occurrence of the external cause; Y99.8 Other external cause status
CPT/HCPCS: 12001; 99284

== ENCOUNTER 2018-06-18 13:42 | Observation (INO) | payer MEDICAID, SELFPAY ==
[2018-06-18 13:42] VITALS: BP 129/95; BP 147/100; PULSE 75; PULSE 89; RESP 16; TEMP 36.7; O2SAT 97; O2SAT 99; BMI 30.8
--- NOTE | 2018-06-18 14:17 | CT_ITS ---
STUDY: CT ABDOMEN AND PELVIS WITH CONTRAST REASON FOR EXAM: Female, 27 years old. Abdominal pain for one day. Blood in stool. RADIATION DOSAGE (If Supplied By Facility): CTDIvol = ( 19 ) mGy, DLP = ( 968 ) mGycm TECHNIQUE: Transaxial images were obtained from the dome of the diaphragm to the symphysis pubis with oral contrast. 100 ml of Isovue 300 contrast was administered. Sagittal and coronal images were reconstructed. Individualized dose optimization techniques were used for this CT. COMPARISON: CT abdomen and pelvis 12/07/2017 FINDINGS: Body wall soft tissues: No acute process. Osseous structures: No acute process. Inferior chest: No acute process. Hepatobiliary: Normal. Pancreas: No acute process. Spleen: Normal. Adrenal glands: Normal. Urogenital: Normal kidneys, collecting systems, ureters, urinary bladder. Normal anteverted uterus. Dominant follicle the left ovary with a long axis dimension of 2.2 cm. Small follicles of the right ovary. Trace cul-de-sac free fluid. Pelvic floor and sidewalls and retroperitoneum: No mass or adenopathy. Vasculature: No acute process. Stomach: No acute process. Small bowel and mesentery: No acute process. Large bowel: Normal appendix. The large bowel to the level of the distal descending colon is normal. Proximal, mid sigmoid colon circumferentially thick-walled with mild induration in the adjacent fat, consistent with acute colitis. Normal rectum. Free fluid or free air: No free air. Trace cul-de-sac free fluid. CT/Abdomen/Pelvis WITH Contrast IMPRESSION: Acute sigmoid colitis. Electronically Signed: Moreno Penaloza MD at 16:51 EST Tel , Service support ,
[2018-06-18] MEDS: 0.9% Normal Saline 1,000 ML 1000 ML IV (14:44)
[2018-06-18] MEDS: Ondansetron 4 MG/2 ML Vial IV (14:44)
[2018-06-18 14:58] LABS: Absolute Lymphocyte Count 1.28 X10^3/ul (0.83-4.51); Basophil# 0.02 X10^3/uL; Basophil% 0.1 % (0-1); Eosinophil# 0.02 X10^3/uL; Eosinophils% 0.1 % (0-5); Hematocrit 45.7 % (37-47); Hemoglobin 14.6 g/dl (12.0-15.0); Lymphocyte # 1.28 X10^3/ul (4.0); Lymphocyte % 8.8 % (19-41); Mean Corp Hgb Conc 31.9 g/gl (32-36); Mean Corpuscular Hgb 29.8 pg (27.0-32.0); Mean Corpuscular Volume 93.3 fL (81-99); Mean Platelet Vol. 10.9 fl (6.2-12.0); Monocyte# 1.16 X10^3/uL; Neutrophil # 11.99 X10^3/uL (2.7-7.7); Neutrophil % 82.2 % (47-70); Platelet Count 274 K/mm3 (150-450); RBC Distribution Width CV 14.4 % (11.6-14.6); RBC Distribution Width SD 48.7 fl (35.1-43.9); White Blood Count 14.6 K/mm3 (4.4-11.0)
[2018-06-18 15:02] LABS: POSITIVE COUNT NO; POSITIVE DIFFERENTIAL NO; POSITIVE MORPHOLOGY NO
[2018-06-18 15:11] LABS: ALB/GLOB Ratio 1.1 RATIO (0.9-2.4); AST(SGOT) 9 U/L (15-37); Alanine Aminotransfer ALT/SGPT 17 U/L (13-56); Albumin, Serum 4.1 g/dL (3.2-5.0); Alkaline Phosphatase 58 U/L (45-117); Anion Gap 6 (5-15); BUN 10 mg/dL (7-18); BUN/Creat Ratio 14.2 RATIO (10-20); Calcium,Total 8.9 mg/dL (8.5-10.1); Chloride 109 mmol/L (98-107); EST Glomerular Filtration Rate 104 mL/min (>60); Est Glom Filt Rate - Afr Amer 126 mL/min (>60); Estimated Creatinine Clearance 98.98 ml/min; Globulin 3.9 g/dL (2.2-4.2); Glucose 104 mg/dL (74-106); Lipase 65 U/L (73-393); Potassium 3.8 mmol/L (3.5-5.1); Sodium Level 140 mmol/L (136-145)
--- NOTE | 2018-06-18 16:29 | ED.DCSUM_ITS ---
- ER Visit Summary Date of Service: 06/18/18 Chief Complaint: [Nausea, vomiting, diarrhea] History of Present Illness: The patient is a 27 F [to the emergency room with complaint not feeling well since yesterday around 2:30 PM. Patient states that she has had nausea and severe diarrhea. Patient states that after the first 3 watery stools her diarrhea became bloody. Patient denies any fever or chills. She describes intermittent abdominal cramping when she has to have the diarrhea. Patient's not had any fevers. Patient does not recall eating anything questionable or undercooked. She denies recent antibiotic usage. She denies recent travel.] Physical Examination: [HEENT-PERRLA, EOMI. Cranial nerves II through XII grossly intact. TMs clear. Mucous membranes moist. No adenopathy. Cardiovascular-regular rate and rhythm without murmur or ectopy Lungs-clear to auscultation, chest wall stable without crepitus or subcu emphysema Abdomen-normoactive bowel sounds, soft. Patient has some mild diffuse tenderness palpation. There is no rebound, rigidity, peritoneal signs. Rectal exam-patient had watery stool that had a bloody discoloration. No masses palpated in the rectal vault. Extremities-intact ?4, normal range of motion, normal pulses, atraumatic] Test Results: [CBC with differential White count 14.6, hemoglobin 14.6, hematocrit 46, platelets 274. Chemistries unremarkable. BUN was 10 and creatinine 0.70. LFTs were normal. Lipase was 65. Stool was sent for C. difficile as well as enteric pathogens results which are pending.] CT scan of the abdomen pelvis was obtained with p.o. contrast that showed acute sigmoid colitis Emergency Department Course and Treatment: Patient was started on Flagyl and Cipro IV. Patient was given a liter normal same fluid bolus. [] Treatment Plan: [Patient will be admitted for IV antibiotics and IV hydration] Disposition: [Admit] Impression: [Acute infectious sigmoid colitis] This note was generated with [employer] dictation software. It may contain incorrect words, spelling, and punctuation that were not noted in review of the chart prior to signing ED Disposition - Plan for ED Patient: Referrals: Care Physician,No Primary [Primary Care Provider] -
[2018-06-18 17:13] VITALS: BP 132/84; PULSE 71; RESP 16; O2SAT 98
[2018-06-18] MEDS: Ciprofloxacin 400 MG/200 ML BAG 200 MG IV (17:16)
[2018-06-18 17:21] LABS: Bacteria 0 SEEN /hpf (None Seen); Mucous, Urine 0 SEEN /hpf (<or=2+); Red Blood Cells-Urine 0 SEEN /hpf (0-5); White Blood Cells 0 SEEN /hpf (0-5)
[2018-06-18 17:29] LABS: Color, Urine Yellow (Yellow); Glucose, Dipstick Normal (Normal); Ketone-Dipstick Negative (Negative); Leukocyte Esterase-Dipstick Negative /ul (Negative); Nitrite-Dipstick Negative (Negative); Occult Blood-Urine Negative /ul (Negative); Protein-Dipstick Negative (Negative); Urine Bilirubin Dipstick Negative (Negative); Urine Clarity Clear (Clear); Urine Urobilinogen Normal (Normal)
[2018-06-18 17:40] LABS: Squamous Epithelial Cells - UA 0-5 SEEN /hpf (5-10)
--- NOTE | 2018-06-18 17:48 | PCM.HP.STD ---
Problem List (1) Colitis Status: Acute History of Present Illness Date of Admission: 06/18/18 Chief Complaint: bloody stool, N/V The patient is a 27 year old F with no pmhx who presents to the ER with c/o bloody diarrhea, nausea and vomiting. This began yesterday at about 1430. She has since had multiple bowel movements and has been nauseous and vomiting. There was red blood noted in the BM and rectal exam confirmed blood in the ER. She has also had crampy abdominal pain when she has moved her bowels. She last vomited about 1230. She currently has no pain. She has not traveled recently, uses bottled water, has no farm animals, last meal out was [employer] yesterday morning. She has no fever or chills. CT abdomen shows sigmoid colitis. 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 Denies: Abdominal Pain Genitourinary: Denies: Dysuria Musculoskeletal: Denies: Joint Pain, Joint Tenderness Skin: Denies: Rash, Wounds Neurological: Denies: Numbness, Tingling, Focal weakness Psychiatric: Denies: Anxiety, Depression, Homicidal Ideations, Suicidal Ideations Hematologic/ Lymphatic: Denies: Easy Bruising, Easy Bleeding VTE Information - Inpt Only VTE Present on Admission: No VTE Mechan Device Prophylaxis: None VTE Pharm Prophylaxis ordered?: No Reason prophylaxis not ordered:: Procedure Not Indicated Patient Problems: Active and Suspected Problems Colitis (Acute) - Physical Exam General: Alert, Oriented x3, Cooperative HEENT: Atraumatic, PERRLA, EOMI, Normocephalic Neck: Supple, No JVD, Negative Carotid Bruits Lungs: Clear to auscultation, Normal air movement Cardiovascular: Regular rate, No murmurs Abdomen: Bowel Sounds Present, Soft, Obese, Tender - Slight RLQ tenderness Extremities: No edema, Capillary Refill Less than 3 Seconds Skin: No rashes, No breakdown Musculoskeletal: No Tenderness to Palpation of Joints or Extremities Neurological: Cranial nerves II-XII grossly intact Psych/Mental Status: Normal Affect, Appropriate, Alert and oriented to time, place, person, mood and affect Vital Signs Temp Pulse Resp BP Pulse Ox 98.1 F 71 16 132/84 H 98 06/18/18 13:42 06/18/18 17:13 06/18/18 17:13 06/18/18 17:13 06/18/18 17:13 Oxygen Delivery Method Room Air Weight: 174 lb 2.643 oz Body Mass Index (BMI) 30.8 Microbiology Past 72 Hours 06/18/18 14:45 Stool Occult Blood (VANE) - Final Stool Occult Blood Positive Laboratory Tests Past 24 Hrs 06/18/18 06/18/18 06/18/18 14:45 14:45 14:45 WBC 14.6 H RBC 4.90 Hgb 14.6 Hct 45.7 MCV 93.3 MCH 29.8 MCHC 31.9 L RDW 14.4 RDW Differential 48.7 H Plt Count 274 MPV 10.9 Immature Gran % (Auto) 0.800 Neut % (Auto) 82.2 H Lymph % (Auto) 8.8 L [place] % (Auto) 8.0 Eos % (Auto) 0.1 Baso % (Auto) 0.1 Absolute Neuts (auto) 12.0 H Absolute Lymphs (auto) 1.28 Total Counted Not Reportable Sodium 140 Potassium 3.8 Chloride 109 H Carbon Dioxide 25.0 Anion Gap 6 BUN 10 Creatinine 0.70 Estim Creat Clear Calc 98.98 Est GFR (MDRD) Af Amer 126 Est GFR (MDRD) Non-Af 104 BUN/Creatinine Ratio 14.2 Glucose 104 Lactic Acid 1.0 Calcium 8.9 Total Bilirubin 0.50 AST 9 L ALT 17 Alkaline Phosphatase 58 Total Protein 8.0 Albumin 4.1 Globulin 3.9 Albumin/Globulin Ratio 1.1 Lipase 65 L Urine Color Urine Clarity Urine pH Ur Specific [place] Urine Protein Urine Glucose (UA) Urine Ketones Urine Occult Blood Urine Nitrite Urine Bilirubin Urine Urobilinogen Ur Leukocyte Esterase Urine RBC Urine WBC Ur Squamous Epith Cells Urine Bacteria Urine Mucus 06/18/18 17:07 WBC RBC Hgb Hct MCV MCH MCHC RDW RDW Differential Plt Count MPV Immature Gran % (Auto) Neut % (Auto) Lymph % (Auto) [place] % (Auto) Eos % (Auto) Baso % (Auto) Absolute Neuts (auto) Absolute Lymphs (auto) Total Counted Sodium Potassium Chloride Carbon Dioxide Anion Gap BUN Creatinine Estim Creat Clear Calc Est GFR (MDRD) Af Amer Est GFR (MDRD) Non-Af BUN/Creatinine Ratio Glucose Lactic Acid Calcium Total Bilirubin AST ALT Alkaline Phosphatase Total Protein Albumin Globulin Albumin/Globulin Ratio Lipase Urine Color Yellow Urine Clarity Clear Urine pH 7.0 Ur Specific [place] 1.010 Urine Protein Negative Urine Glucose (UA) Normal Urine Ketones Negative Urine Occult Blood Negative Urine Nitrite Negative Urine Bilirubin Negative Urine Urobilinogen Normal Ur Leukocyte Esterase Negative Urine RBC 0 SEEN Urine WBC 0 SEEN Ur Squamous Epith Cells 0-5 SEEN Urine Bacteria 0 SEEN Urine Mucus 0 SEEN Assessment/Plan All Active Problems Colitis (Acute) 1. Sigmoid colitis with bloody stools - Hgb stable. continue flagyl / cipro. PCN allergy. Elevated WBC with left shift. Enteric panel ordered, O&P ordered, lactoferrin ordered. Continue IV fluids / supportive care. Clear liquid diet. Lipase negative. UA is negative. LFT normal. 2. Obesity - dietary eval. DVT ppx: early ambulation DC Planning: anticipate no needs This patient was seen by Se Burch PA-C under the supervision of Doctor Anjel.
--- NOTE | 2018-06-18 17:52 | HP.PCM_ITS ---
Problem List (1) Colitis Status: Acute History of Present Illness Date of Admission: 06/18/18 Chief Complaint: bloody stool, N/V The patient is a 27 year old F with no pmhx who presents to the ER with c/o bloody diarrhea, nausea and vomiting. This began yesterday at about 1430. She has since had multiple bowel movements and has been nauseous and vomiting. There was red blood noted in the BM and rectal exam confirmed blood in the ER. She has also had crampy abdominal pain when she has moved her bowels. She last vomited about 1230. She currently has no pain. She has not traveled recently, uses bottled water, has no farm animals, last meal out was [employer] yesterday morning. She has no fever or chills. CT abdomen shows sigmoid colitis. 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 Denies: Abdominal Pain Genitourinary: Denies: Dysuria Musculoskeletal: Denies: Joint Pain, Joint Tenderness Skin: Denies: Rash, Wounds Neurological: Denies: Numbness, Tingling, Focal weakness Psychiatric: Denies: Anxiety, Depression, Homicidal Ideations, Suicidal Ideations Hematologic/ Lymphatic: Denies: Easy Bruising, Easy Bleeding VTE Information - Inpt Only VTE Present on Admission: No VTE Mechan Device Prophylaxis: None VTE Pharm Prophylaxis ordered?: No Reason prophylaxis not ordered:: Procedure Not Indicated Patient Problems: Active and Suspected Problems Colitis (Acute) - Physical Exam General: Alert, Oriented x3, Cooperative HEENT: Atraumatic, PERRLA, EOMI, Normocephalic Neck: Supple, No JVD, Negative Carotid Bruits Lungs: Clear to auscultation, Normal air movement Cardiovascular: Regular rate, No murmurs Abdomen: Bowel Sounds Present, Soft, Obese, Tender - Slight RLQ tenderness Extremities: No edema, Capillary Refill Less than 3 Seconds Skin: No rashes, No breakdown Musculoskeletal: No Tenderness to Palpation of Joints or Extremities Neurological: Cranial nerves II-XII grossly intact Psych/Mental Status: Normal Affect, Appropriate, Alert and oriented to time, pl abhijit, person, mood and affect Vital Signs Temp Pulse Resp BP Pulse Ox 98.1 F 71 16 132/84 H 98 06/18/18 13:42 06/18/18 17:13 06/18/18 17:13 06/18/18 17:13 06/18/18 17:13 Oxygen Delivery Method Room Air Weight: 174 lb 2.643 oz Body Mass Index (BMI) 30.8 Microbiology Past 72 Hours 06/18/18 14:45 Stool Occult Blood (VANE) - Final Stool Occult Blood Positive Laboratory Tests Past 24 Hrs 06/18/18 06/18/18 06/18/18 14:45 14:45 14:45 WBC 14.6 H RBC 4.90 Hgb 14.6 Hct 45.7 MCV 93.3 MCH 29.8 MCHC 31.9 L RDW 14.4 RDW Differential 48.7 H Plt Count 274 MPV 10.9 Immature Gran % (Auto) 0.800 Neut % (Auto) 82.2 H Lymph % (Auto) 8.8 L [place] % (Auto) 8.0 Eos % (Auto) 0.1 Baso % (Auto) 0.1 Absolute Neuts (auto) 12.0 H Absolute Lymphs (auto) 1.28 Total Counted Not Reportable Sodium 140 Potassium 3.8 Chloride 109 H Carbon Dioxide 25.0 Anion Gap 6 BUN 10 Creatinine 0.70 Estim Creat Clear Calc 98.98 Est GFR (MDRD) Af Amer 126 Est GFR (MDRD) Non-Af 104 BUN/Creatinine Ratio 14.2 Glucose 104 Lactic Acid 1.0 Calcium 8.9 Total Bilirubin 0.50 AST 9 L ALT 17 Alkaline Phosphatase 58 Total Protein 8.0 Albumin 4.1 Globulin 3.9 Albumin/Globulin Ratio 1.1 Lipase 65 L Urine Color Urine Clarity Urine pH Ur Specific [place] Urine Protein Urine Glucose (UA) Urine Ketones Urine Occult Blood Urine Nitrite Urine Bilirubin Urine Urobilinogen Ur Leukocyte Esterase Urine RBC Urine WBC Ur Squamous Epith Cells Urine Bacteria Urine Mucus 06/18/18 17:07 WBC RBC Hgb Hct MCV MCH MCHC RDW RDW Differential Plt Count MPV Immature Gran % (Auto) Neut % (Auto) Lymph % (Auto) [place] % (Auto) Eos % (Auto) Baso % (Auto) Absolute Neuts (auto) Absolute Lymphs (auto) Total Counted Sodium Potassium Chloride Carbon Dioxide Anion Gap BUN Creatinine Estim Creat Clear Calc Est GFR (MDRD) Af Amer Est GFR (MDRD) Non-Af BUN/Creatinine Ratio Glucose Lactic Acid Calcium Total Bilirubin AST ALT Alkaline Phosphatase Total Protein Albumin Globulin Albumin/Globulin Ratio Lipase Urine Color Yellow Urine Clarity Clear Urine pH 7.0 Ur Specific [place] 1.010 Urine Protein Negative Urine Glucose (UA) Normal Urine Ketones Negative Urine Occult Blood Negative Urine Nitrite Negative Urine Bilirubin Negative Urine Urobilinogen Normal Ur Leukocyte Esterase Negative Urine RBC 0 SEEN Urine WBC 0 SEEN Ur Squamous Epith Cells 0-5 SEEN Urine Bacteria 0 SEEN Urine Mucus 0 SEEN Assessment/Plan All Active Problems Colitis (Acute) 1. Sigmoid colitis with bloody stools - Hgb stable. continue flagyl / cipro. PCN allergy. Elevated WBC with left shift. Enteric panel ordered, O&P ordered, lactoferrin ordered. Continue IV fluids / supportive care. Clear liquid diet. Lipase negative. UA is negative. LFT normal. 2. Obesity - dietary eval. DVT ppx: early ambulation DC Planning: anticipate no needs This patient was seen by Se Burch PA-C under the supervision of Doctor Anjel.
[2018-06-18 18:18] VITALS: BMI 30.4
[2018-06-18 18:37] VITALS: BP 151/93; PULSE 87; RESP 14; TEMP 36.7; O2SAT 98
[2018-06-18] MEDS: Pantoprazole Sodium 20 MG Tablet PO (21:04)
[2018-06-18] MEDS: 0.9% Normal Saline 1,000 ML 125 ML IV (21:04)
[2018-06-18 21:17] VITALS: BP 137/92; PULSE 76; RESP 16; TEMP 36.8; O2SAT 98
[2018-06-19 01:55] VITALS: BP 131/93; PULSE 81; RESP 16; TEMP 36.6; O2SAT 96
[2018-06-19] MEDS: 0.9% Normal Saline 1,000 ML 125 ML IV ×2 (04:49→13:24)
[2018-06-19 06:36] LABS: Absolute Lymphocyte Count 2.42 X10^3/ul (0.83-4.51); Absolute Neutrophil Count 7.4 X10^3/uL (2.0-7.7); Basophil# 0.04 X10^3/uL; Basophil% 0.4 % (0-1); Eosinophil# 0.07 X10^3/uL; Eosinophils% 0.6 % (0-5); Hematocrit 40.3 % (37-47); Lymphocyte # 2.42 X10^3/ul (4.0); Lymphocyte % 22.3 % (19-41); Mean Corp Hgb Conc 32.3 g/gl (32-36); Mean Corpuscular Hgb 30.5 pg (27.0-32.0); Mean Corpuscular Volume 94.6 fL (81-99); Mean Platelet Vol. 11.4 fl (6.2-12.0); Monocyte# 0.88 X10^3/uL; Monocyte% 8.1 % (0-10); Neutrophil # 7.36 X10^3/uL (2.7-7.7); Neutrophil % 67.8 % (47-70); Platelet Count 222 K/mm3 (150-450); RBC Distribution Width CV 14.2 % (11.6-14.6); RBC Distribution Width SD 47.6 fl (35.1-43.9); Red Blood Count 4.26 M/mm3 (4.2-5.4); White Blood Count 10.9 K/mm3 (4.4-11.0)
[2018-06-19 06:38] LABS: POSITIVE COUNT NO; POSITIVE DIFFERENTIAL NO; POSITIVE MORPHOLOGY NO
[2018-06-19 07:05] LABS: Anion Gap 9 (5-15); BUN 7 mg/dL (7-18); BUN/Creat Ratio 10.7 RATIO (10-20); Calcium,Total 8.2 mg/dL (8.5-10.1); Chloride 109 mmol/L (98-107); Creatinine, Serum 0.65 mg/dL (0.55-1.02); EST Glomerular Filtration Rate 114 mL/min (>60); Est Glom Filt Rate - Afr Amer 138 mL/min (>60); Estimated Creatinine Clearance 111.27 ml/min; Glucose 86 mg/dL (74-106); Potassium 3.8 mmol/L (3.5-5.1); Sodium Level 142 mmol/L (136-145)
[2018-06-19 10:16] VITALS: BP 115/76; PULSE 72; RESP 16; TEMP 36.8; O2SAT 98
[2018-06-19] MEDS: Pantoprazole Sodium 20 MG Tablet PO (10:18)
[2018-06-19] MEDS: Ciprofloxacin 400 MG/200 ML BAG 200 MG IV (10:21)
--- NOTE | 2018-06-19 13:16 | PN_ITS ---
Patient Problems: Active and Suspected Problems Colitis (Acute) Vitals/I&O's: Vital Signs Temp Pulse Resp BP Pulse Ox 98.2 F 72 16 115/76 98 06/19/18 10:16 06/19/18 10:16 06/19/18 10:16 06/19/18 10:16 06/19/18 10:16 Oxygen Delivery Method Room Air Weight: 177 lb 0.499 oz Body Mass Index (BMI) 30.4 Intake and Output for Last 24 Hours 06/17/18 06/18/18 06/19/18 23:59 23:59 23:59 Intake Total 2253 / 2253 Output Total 400 / 400 Balance 1853 / 1853 Microbiology Past 72 Hours 06/18/18 20:50 Stool Enteric Bacteriology - Final 06/18/18 20:50 Stool C. difficile DNA Amplification - Final 06/18/18 14:45 Stool Stool Occult Blood (VANE) - Final Occult Blood Positive Laboratory Results 06/18/18 14:45: WBC 14.6 H, RBC 4.90, Hgb 14.6, Hct 45.7, MCV 93.3, MCH 29.8, MCHC 31.9 L, RDW 14.4, RDW Differential 48.7 H, Plt Count 274, MPV 10.9, Immature Gran % (Auto) 0.800, Neut % (Auto) 82.2 H, Lymph % (Auto) 8.8 L, [place] % (Auto) 8.0, Eos % (Auto) 0.1, Baso % (Auto) 0.1, Absolute Neuts (auto) 12.0 H, Absolute Lymphs (auto) 1.28, Total Counted Not Reportable 06/18/18 14:45: Sodium 140, Potassium 3.8, Chloride 109 H, Carbon Dioxide 25.0, Anion Gap 6, BUN 10, Creatinine 0.70, Estim Creat Clear Calc 98.98, Est GFR (MDRD) Af Amer 126, Est GFR (MDRD) Non-Af 104, BUN/Creatinine Ratio 14.2, Glucose 104, Calcium 8.9, Total Bilirubin 0.50, AST 9 L, ALT 17, Alkaline Phosphatase 58, Total Protein 8.0, Albumin 4.1, Globulin 3.9, Albumin/Globulin Ratio 1.1, Lipase 65 L 06/18/18 14:45: Lactic Acid 1.0 06/18/18 17:07: Urine Color Yellow, Urine Clarity Clear, Urine pH 7.0, Ur Specific [place] 1.010, Urine Protein Negative, Urine Glucose (UA) Normal, Urine Ketones Negative, Urine Occult Blood Negative, Urine Nitrite Negative, Urine Bilirubin Negative, Urine Urobilinogen Normal, Ur Leukocyte Esterase Negative, Urine RBC 0 SEEN, Urine WBC 0 SEEN, Ur Squamous Epith Cells 0-5 SEEN, Urine Bacteria 0 SEEN, Urine Mucus 0 SEEN 06/19/18 06:05: WBC 10.9, RBC 4.26, Hgb 13.0, Hct 40.3, MCV 94.6, MCH 30.5, MCHC 32.3, RDW 14.2, RDW Differential 47.6 H, Plt Count 222, MPV 11.4, Immature Gran % (Auto) 0.800, Neut % (Auto) 67.8, Lymph % (Auto) 22.3, [place] % (Auto) 8.1, Eos % (Auto) 0.6, Baso % (Auto) 0.4, Absolute Neuts (auto) 7.4, Absolute Lymphs (auto) 2.42, Total Counted Not Reportable 06/19/18 06:05: Sodium 142, Potassium 3.8, Chloride 109 H, Carbon Dioxide 24.0, Anion Gap 9, BUN 7, Creatinine 0.65, Estim Creat Clear Calc 111.27, Est GFR (MDRD) Af Amer 138, Est GFR (MDRD) Non-Af 114, BUN/Creatinine Ratio 10.7, Glucose 86, Calcium 8.2 L Current Medications Acetaminophen (Tylenol) 650 mg PO Q6H PRN PRN PRN Reason: PAIN Hydrocodone Bitart/Acetaminophen ([place] 5mg-325mg) 1 - 2 tablet PO Q6H PRN PRN PRN Reason: Moderate-severe pain Hydralazine HCl (Apresoline Iv) 10 mg IV Q4H PRN PRN PRN Reason: SBP > 160 Sodium Chloride () 1,000 mls @ 125 mls/hr IV .Q8H [facility] Last Admin: 06/19/18 04:49 Dose: 125 mls/hr Ciprofloxacin (Cipro) 400 mg in 200 mls @ 200 mls/hr IV Q12 [facility] Last Admin: 06/19/18 10:21 Dose: 200 mls/hr Metronidazole (Flagyl) 500 mg in 100 mls @ 100 mls/hr IV Q8 [facility] Last Admin: 06/19/18 01:53 Dose: 100 mls/hr Sodium Chloride () 250 mls @ 15 mls/hr IV .[id number] PRN PRN Reason: SALINE FLUSH Morphine Sulfate () 1 - 2 mg IV Q4H PRN PRN PRN Reason: PAIN Ondansetron HCl (Zofran) 4 mg IV Q6H PRN PRN PRN Reason: NAUSEA Pantoprazole Sodium (Protonix) 20 mg PO BID [facility] Last Admin: 06/19/18 10:18 Dose: 20 mg Medical Necessity - Tobacco Use Smoking Status: Current every day smoker Tobacco Use: Cigarettes Assessment/Plan All Active Problems Colitis (Acute)
[2018-06-19 14:35] VITALS: PULSE 68
[2018-06-19 14:36] VITALS: BP 113/71; PULSE 88; RESP 16; TEMP 36.9; O2SAT 100
--- NOTE | 2018-06-19 14:49 | DCINST_ITS ---
- Discharge Diagnoses Current Active Problems: Current Active and Chronic Problems Colitis (Acute) You will use the following diet at home:: Other - Soft diet, low residue for 2-3 days and then advance solid diet Your food should be the consistency of: Regular Call your doctor if you observe: Fever of 101 or Higher, Inability to urinate, Fainting spells, Chest pain, Increased palpitations (irregular heartbeat) Allergies/Adverse Reactions: Allergies latex Allergy (Verified 06/18/18 13:43) Rash Penicillins Allergy (Verified 06/18/18 13:43) Hives BEE STING Allergy (Uncoded 06/18/18 13:43) Anaphylaxis Medications to take at Discharge Epi Pen (for allergic rxn) 0.3 mg IM PRN PRN 02/07/15 Acetaminophen [Tylenol Extra Strength] 500 mg PO Q6H PRN PRN #10 tablet 06/19/18 Ciprofloxacin [Cipro] 500 mg PO BID #12 tablet 06/19/18 Metronidazole [Flagyl] 500 mg PO TID #15 tablet 06/19/18 The following prescriptions were given: Acetaminophen [Tylenol Extra Strength] 500 mg PO Q6H PRN PRN #10 tablet PRN Reason: PAIN/FEVER Ciprofloxacin [Cipro] 500 mg PO BID #12 tablet Metronidazole [Flagyl] 500 mg PO TID #15 tablet Primary Care Physician: Care Physician,No Primary [Primary Care Provider] - Please follow up with your Primary Care Physician in: IN 1-2 WEEKS Test Results: Test results from this visit will be discussed in further detail at your follow- up appointment, if applicable. Please Follow Up With: Manuel Doll MD When: needed if gets recurrent abdominal pain/colitis
--- NOTE | 2018-06-19 14:49 | PCM.DC.SUM ---
Discharge Date and Diagnosis - Problem List Patient Problems: Active and Suspected Problems Colitis (Acute) Date of Admission: 06/18/18 Date of Discharge: 06/19/18 - Primary Discharge Diagnosis Active and Suspected Problems Colitis (Acute) Acute lower GI bleed secondary to sigmoid colitis Acute sigmoid colitis Hospital Course and Treatment Summary of Care Provided: The patient is a 27 year old F with no prior history of colitis or GI bleed came to ED with nausea, vomiting, abdominal pain mainly right upper quadrant along with bloody diarrhea for about 1 day. She had bright red rectal bleed. She had sick contact with her son with upper respiratory tract infection. In ED, found to have leukocytosis but no fever, tachycardia, tachypnea or hypoxia and CT findings suggestive of acute sigmoid colitis with fatty infiltration of sigmoid mesocolon. Patient was started on IV fluid normal saline, IV Cipro, Flagyl and supportive treatment. Enteric bacteriology panel is negative. C. difficile negative. Stool for occult blood positive. Patient responded well. Abdominal pain has improved bilateral improved. She tolerated clear liquid diet and then soft diet. Patient wants to go home. Patient is discharged on 6 more days of Cipro and Flagyl to complete a total of 7 days. PCP in 1-2 weeks. Follow-up with Dr. Doll , the surgeon if she gets further abdominal pain/colitis. [] Patient Problems: Active and Suspected Problems Colitis (Acute) Subjective: Patient on clear liquid diet. Abdominal pain has much improved and did not increase on clear liquid diet. Diet was advanced to soft diet and patient tolerated well. No fever no chills. No leukocytosis. - Physical Exam General: Alert, Oriented x3, Cooperative HEENT: Atraumatic, PERRLA, EOMI, Normocephalic Neck: Supple, No JVD, Negative Carotid Bruits Lungs: Clear to auscultation, Normal air movement Cardiovascular: Regular rate, Regular Rhythm, Normal S1, Normal S2, No murmurs Abdomen: Bowel Sounds Present, Soft, Non Tender, Non-Distended, - - No tenderness even on deep palpation. Recently patient had right lower quadrant pain and tenderness that is resolved Extremities: No edema, Capillary Refill Less than 3 Seconds Skin: No rashes, No breakdown Musculoskeletal: No Tenderness to Palpation of Joints or Extremities Neurological: Cranial nerves II-XII grossly intact, Deep Tendon Reflexes 2+/4 and Symmetrical, Neuro grossly intact Psych/Mental Status: Normal Affect, Appropriate, Alert and oriented to time, place, person, mood and affect Vital Signs Temp Pulse Resp BP Pulse Ox 98.4 F 88 16 113/71 100 06/19/18 14:36 06/19/18 14:36 06/19/18 14:36 06/19/18 14:36 06/19/18 14:36 Oxygen Delivery Method Room Air Weight: 177 lb 0.499 oz Body Mass Index (BMI) 30.4 Intake and Output for Last 24 Hours 06/17/18 06/18/18 06/19/18 23:59 23:59 23:59 Intake Total 3523 / 3523 Output Total 400 / 400 Balance 3123 / 3123 Microbiology Past 72 Hours 06/18/18 20:50 Enteric Bacteriology - Final Stool 06/18/18 20:50 C. difficile DNA Amplification - Final Stool 06/18/18 14:45 Stool Occult Blood (VANE) - Final Stool Occult Blood Positive Laboratory Tests Past 24 Hrs 06/18/18 06/18/18 06/18/18 14:45 14:45 14:45 WBC 14.6 H RBC 4.90 Hgb 14.6 Hct 45.7 MCV 93.3 MCH 29.8 MCHC 31.9 L RDW 14.4 RDW Differential 48.7 H Plt Count 274 MPV 10.9 Immature Gran % (Auto) 0.800 Neut % (Auto) 82.2 H Lymph % (Auto) 8.8 L [place] % (Auto) 8.0 Eos % (Auto) 0.1 Baso % (Auto) 0.1 Absolute Neuts (auto) 12.0 H Absolute Lymphs (auto) 1.28 Total Counted Not Reportable Sodium 140 Potassium 3.8 Chloride 109 H Carbon Dioxide 25.0 Anion Gap 6 BUN 10 Creatinine 0.70 Estim Creat Clear Calc 98.98 Est GFR (MDRD) Af Amer 126 Est GFR (MDRD) Non-Af 104 BUN/Creatinine Ratio 14.2 Glucose 104 Lactic Acid 1.0 Calcium 8.9 Total Bilirubin 0.50 AST 9 L ALT 17 Alkaline Phosphatase 58 Total Protein 8.0 Albumin 4.1 Globulin 3.9 Albumin/Globulin Ratio 1.1 Lipase 65 L Urine Color Urine Clarity Urine pH Ur Specific [place] Urine Protein Urine Glucose (UA) Urine Ketones Urine Occult Blood Urine Nitrite Urine Bilirubin Urine Urobilinogen Ur Leukocyte Esterase Urine RBC Urine WBC Ur Squamous Epith Cells Urine Bacteria Urine Mucus 06/18/18 06/19/18 06/19/18 17:07 06:05 06:05 WBC 10.9 RBC 4.26 Hgb 13.0 Hct 40.3 MCV 94.6 MCH 30.5 MCHC 32.3 RDW 14.2 RDW Differential 47.6 H Plt Count 222 MPV 11.4 Immature Gran % (Auto) 0.800 Neut % (Auto) 67.8 Lymph % (Auto) 22.3 [place] % (Auto) 8.1 Eos % (Auto) 0.6 Baso % (Auto) 0.4 Absolute Neuts (auto) 7.4 Absolute Lymphs (auto) 2.42 Total Counted Not Reportable Sodium 142 Potassium 3.8 Chloride 109 H Carbon Dioxide 24.0 Anion Gap 9 BUN 7 Creatinine 0.65 Estim Creat Clear Calc 111.27 Est GFR (MDRD) Af Amer 138 Est GFR (MDRD) Non-Af 114 BUN/Creatinine Ratio 10.7 Glucose 86 Lactic Acid Calcium 8.2 L Total Bilirubin AST ALT Alkaline Phosphatase Total Protein Albumin Globulin Albumin/Globulin Ratio Lipase Urine Color Yellow Urine Clarity Clear Urine pH 7.0 Ur Specific [place] 1.010 Urine Protein Negative Urine Glucose (UA) Normal Urine Ketones Negative Urine Occult Blood Negative Urine Nitrite Negative Urine Bilirubin Negative Urine Urobilinogen Normal Ur Leukocyte Esterase Negative Urine RBC 0 SEEN Urine WBC 0 SEEN Ur Squamous Epith Cells 0-5 SEEN Urine Bacteria 0 SEEN Urine Mucus 0 SEEN Call your doctor if you observe: Fever of 101 or Higher, Inability to urinate, Fainting spells, Chest pain, Increased palpitations (irregular heartbeat) Home Medications: Medications to take at Discharge Epi Pen (for allergic rxn) 0.3 mg IM PRN PRN 02/07/15 Acetaminophen [Tylenol Extra Strength] 500 mg PO Q6H PRN PRN #10 tablet 06/19/18 Ciprofloxacin [Cipro] 500 mg PO BID #12 tablet 06/19/18 Metronidazole [Flagyl] 500 mg PO TID #15 tablet 06/19/18 Following Prescrptions Were Given to Patient: Acetaminophen [Tylenol Extra Strength] 500 mg PO Q6H PRN PRN #10 tablet PRN Reason: PAIN/FEVER Ciprofloxacin [Cipro] 500 mg PO BID #12 tablet Metronidazole [Flagyl] 500 mg PO TID #15 tablet Primary Care Physician: Care Physician,No Primary [Primary Care Provider] - Please follow up with your Primary Care Physician in: IN 1-2 WEEKS Please Follow Up With: Manuel Doll MD When: needed if gets recurrent abdominal pain/colitis Medical Necessity - Tobacco Use Smoking Status: Current every day smoker Tobacco Use: Cigarettes Meaningful Use Info Meaningful Use Diagnoses (Choose all that apply): None applicable Code Visit Inpatient E&M: 23075 Disch Hosp
--- NOTE | 2018-06-19 16:08 | CHAPLAIN ---
Type of Pastoral Visit _x__ Initial Visit ___ Follow-up Visit ___ On-call Visit ___ General Patient Visit ___ Spiritual Assessment ___ Family Conference ___ Bereavement ___ Rapid Response ___ Code Blue ___ Other (describe below) Pastoral Care Referral From _x__ Patient ___ Family ___ Nurse ___ Physician ___ Linen Clerk ___ Herpetologist ___ Other (describe below) Sacrament/Intervention _x__ Active listening ___ Anointing ___ Zoroastrianism ___ Bereavement ___ Communion ___ Tessie exploration ___ _x__ Life review _x__ Prayer ___ Reconciliation ___ Sacrament of Sick _x__ Supportive presence ___ Wedding ___ Other (describe below) Pastoral Comments
== END 2018-06-19 17:15 | disposition home or self-care (01) ==
LOC: ED 14:54 → MS2 06-19 06:20
PROVIDERS: Physician Assistant; Admitting Provider Family Medicine; Emergency Provider Emergency Medicine; Referring Provider Family Medicine; Visit Provider Internal Medicine
DX: K52.9 Noninfective gastroenteritis and colitis, unspecified (principal); E66.9 Obesity, unspecified; Z68.30 Body mass index [BMI] 30.0-30.9, adult; Z71.3 Dietary counseling and surveillance; F17.210 Nicotine dependence, cigarettes, uncomplicated
CPT/HCPCS: 36415; 74177; 80048; 80053; 81001; 82274; 83605; 83690; 85025; 87177; 87209; 87493; 87506; 96361; 96365; 96366; 96367; 96375; 99218; 99283; 99406; J7030; J7050; Q9967; A4216; G0378; J0744; J2405

== ENCOUNTER 2018-11-08 13:31 | Emergency (ER) | payer MEDICAID, SELFPAY ==
[2018-06-18 18:18] VITALS: BMI 30.4
[2018-11-08 13:32] VITALS: BP 122/80; PULSE 98; RESP 16; TEMP 36.8; O2SAT 97; BMI 30.9
--- NOTE | 2018-11-08 14:22 | ED.VIS.GEN ---
History of Present Illness Chief Complaint: Eye Problem Informant: Patient Onset: Today, Hours - 2 Timing: Continuous Current Severity: Mild Maximum Severity: Mild Narrative: Patient presents with right eyelid swelling that started 2 hours ago. No known insect bites, no known irritants that are being. No new make-up. She has no pain, she has no vision changes or eye involvement. Past Medical History - Allergies and Home Meds Allergies/Adverse Reactions: Allergies latex Allergy (Verified 11/08/18 13:32) Rash Penicillins Allergy (Verified 11/08/18 13:32) Hives BEE STING Allergy (Uncoded 11/08/18 13:32) Anaphylaxis Primary Care Physician: Care Physician,No Primary [Primary Care Provider] - Past Medical History: None Surgical History: tonsillectomy, - - c section, age 5 hip surgery Smoking Status: Current every day smoker - Family History Maternal Family History: Reports: No pertinent history Paternal Family History: Reports: Heart Disease Review of Systems General: Denies: Fever Eyes: Denies: Visual changes - right, Blurred vision - right Respiratory: Denies: Cough Gastrointestinal: Denies: Nausea, Vomiting Neurological: Denies: Weakness Allergy: Denies: Uticaria, Swelling of the mouth Physical Exam Vital Signs/Narrative: Vital Signs Temp Pulse Resp BP Pulse Ox 11/08/18 13:32 98.2 F 98 16 122/80 H 97 General: Well nourished, Well developed Eyes: - - Right eyelid has edema, there is no erythema or [place]. No signs of infection. She has full range of motion of the eyes without any eye involvement. ENT: Moist mucous membranes Cardiovascular: Regular rate Respiratory: No distress Skin: Normal color, No rash Diagnostic/Tx/Re-eval - Medical Decision Making Patient has eyelid edema, this is likely allergic. I reassured her I will discharge in stable condition I did give her steroids. Discharge stable condition ED Disposition - Plan for ED Patient: Disposition: Home or Assisted Living Diagnosis: Eyelid abnormality Instructions: First Aid: Allergic Reactions Referrals: Care Physician,No Primary [Primary Care Provider] -
--- NOTE | 2018-11-08 14:28 | ED.DEP ---
ED Disposition - Plan for ED Patient: Disposition: Home or Assisted Living Diagnosis: Eyelid abnormality Instructions: First Aid: Allergic Reactions Referrals: Care Physician,No Primary [Primary Care Provider] -
[2018-11-08] MEDS: Triamcinolone Acetonide 40 MG/ML Vial IM (14:37)
[2018-11-08 14:42] VITALS: RESP 16
--- NOTE | 2018-11-08 14:42 | ED.RN ---
REVIEWED D/C INSTRUCTIONS, FOLLOW UP CARE, AND S/S THAT WOULD WARRANT A RETURN TO THE ED WITH PT. PT VERBALIZED AN UNDERSTANDING AND DENIES FURTHER QUESTIONS FOR THIS RN. PT SKIN P/W/D, RESP EVEN AND UNLABORED, PT A&O X 3, NO DISTRESS NOTED. PT AMBULATED OUT OF ED, GAIT STEADY.
== END 2018-11-08 14:44 | disposition home or self-care (01) ==
PROVIDERS: Emergency Provider Emergency Medicine
DX: H02.843 Edema of right eye, unspecified eyelid (principal); F17.200 Nicotine dependence, unspecified, uncomplicated
CPT/HCPCS: 96372; 99283

== ENCOUNTER 2019-04-02 20:54 | Emergency (ER) | payer MEDICAID, SELFPAY ==
[2019-04-02 20:56] VITALS: BP 133/101; PULSE 100; RESP 16; TEMP 36.9; O2SAT 95; BMI 31.3
--- NOTE | 2019-04-02 22:20 | CT_ITS ---
STUDY: CT ABDOMEN AND PELVIS WITHOUT CONTRAST REASON FOR EXAM: Female, 28 years old. RT FLANK PAIN X 2 DAYS PRIOR ,RT HIP SURGERY RADIATION DOSAGE (If Supplied By Facility): CTDIvol = ( 8.89 ) mGy, DLP = ( 443.97 ) mGycm TECHNIQUE: Transaxial images were obtained from the dome of the diaphragm to the symphysis pubis without oral contrast, and without intravenous contrast. Sagittal and coronal images were reconstructed. Individualized dose optimization techniques were used for this CT. COMPARISON: CT of abdomen and pelvis dated June 18, 2018 FINDINGS: The visualized lung bases are unremarkable. Normal liver. No intrahepatic biliary duct dilatation or liver mass. Normal gallbladder and extrahepatic biliary system. Normal spleen. Normal pancreas. Normal bilateral adrenal glands. Normal right kidney. Normal left kidney. No hydronephrosis or renal masses. No radiopaque stones. Normal visualized stomach. Normal small intestine. Normal colon. No bowel dilatation or obstruction. No free air or free fluid. There is non-visualization of the appendix. Normal abdominal aorta. Normal inferior vena cava. Normal retroperitoneum. Normal urinary bladder. Unremarkable visualized uterus. Normal abdominal wall. Normal osseous structures. CT/Abdomen/Pelvis without Cont IMPRESSION: No demonstrated acute or significant process of the abdomen and pelvis. Electronically Signed: Marco Mohamud MD at 23:55 EST , Service support ,
[2019-04-02 22:40] LABS: Bacteria 0 SEEN /hpf (None Seen); Mucous, Urine 0 SEEN /hpf (<or=2+); Red Blood Cells-Urine 0 SEEN /hpf (0-5)
[2019-04-02 22:49] LABS: Color, Urine Yellow (Yellow); Glucose, Dipstick Normal (Normal); Ketone-Dipstick Negative (Negative); Leukocyte Esterase-Dipstick 25 /ul (Negative); Nitrite-Dipstick Negative (Negative); Occult Blood-Urine Negative /ul (Negative); Protein-Dipstick Negative (Negative); Urine Bilirubin Dipstick Negative (Negative); Urine Clarity Sl. Cloudy (Clear); Urine Urobilinogen Normal (Normal); Urine pH 6.5 (5.0 - 8.0)
[2019-04-02 22:50] LABS: White Blood Cells 0-5 SEEN /hpf (0-5)
[2019-04-02 22:51] LABS: Amorphous Sediment 1+ URATE; Squamous Epithelial Cells - UA 0-5 SEEN /hpf (5-10)
[2019-04-02 22:54] LABS: Absolute Lymphocyte Count 1.53 X10^3/uL (0.83-4.51); Absolute Neutrophil Count 9.7 X10^3/uL (2.0-7.7); Basophil# 0.06 X10^3/uL; Basophil% 0.5 % (0-1); Eosinophil# 0.02 X10^3/uL; Eosinophils% 0.2 % (0-5); Hematocrit 43.9 % (37-47); Hemoglobin 14.6 g/dL (12.0-15.0); Lymphocyte # 1.53 X10^3/ul (4.0); Lymphocyte % 12.5 % (19-41); Mean Corp Hgb Conc 33.3 g/dL (32-36); Mean Corpuscular Hgb 30.3 pg (27.0-32.0); Mean Corpuscular Volume 91.1 fL (81-99); Mean Platelet Vol. 10.6 fl (6.2-12.0); Monocyte# 0.79 X10^3/uL; Monocyte% 6.4 % (0-10); NRBC Flagged by Analyzer 0 % (0-5); Neutrophil # 9.74 X10^3/uL (2.7-7.7); Neutrophil % 79.5 % (47-70); Platelet Count 305 K/mm3 (150-450); RBC Distribution Width CV 13.3 % (11.6-14.6); RBC Distribution Width SD 45.1 fl (35.1-43.9); Red Blood Count 4.82 M/mm3 (4.2-5.4); White Blood Count 12.3 K/mm3 (4.4-11.0)
[2019-04-02 23:10] LABS: Internal QC Validated? YES +Cl - CLEAR BKGD; Pregnancy, Serum, hCG Quali. NEGATIVE Negative
[2019-04-02] MEDS: Ondansetron 4 MG/2 ML Vial IV (23:15)
[2019-04-02 23:16] LABS: ALB/GLOB Ratio 1.3 RATIO (0.9-2.4); AST(SGOT) 6 U/L (15-37); Alanine Aminotransfer ALT/SGPT 15 U/L (13-56); Albumin, Serum 4.3 g/dL (3.2-5.0); Alkaline Phosphatase 67 U/L (45-117); Anion Gap 6 (5-15); BUN 7 mg/dL (7-18); BUN/Creat Ratio 8.8 RATIO (10-20); Calcium,Total 9.2 mg/dL (8.5-10.1); Chloride 107 mmol/L (98-107); EST Glomerular Filtration Rate 90 mL/min (>60); Est Glom Filt Rate - Afr Amer 109 mL/min (>60); Globulin 3.4 g/dL (2.2-4.2); Glucose 100 mg/dL (74-106); Lipase 65 U/L (73-393); Potassium 3.9 mmol/L (3.5-5.1); Protein, Total 7.7 g/dL (6.4-8.2); Sodium Level 140 mmol/L (136-145)
[2019-04-02] MEDS: Morphine 4 MG/ML Syringe IV (23:17)
[2019-04-03 00:32] VITALS: BP 118/80; PULSE 65; RESP 15; O2SAT 94
--- NOTE | 2019-04-03 00:33 | ED.DEP ---
ED Disposition - Plan for ED Patient: Instructions: ABDOMINAL PAIN, Unknown Cause, (Female) Prescriptions: proMETHazine tablet [Phenergan] 25 mg PO Q6H PRN PRN #10 tablet PRN Reason: Nausea Ondansetron [Zofran Odt] 4 mg PO Q8H PRN PRN #10 tablet PRN Reason: Nausea Referrals: Foreign Sykes MD [NON-STAFF] -
--- NOTE | 2019-04-03 00:37 | ED.DCSUM_ITS ---
- ER Visit Summary Date of Service: 04/03/19 Chief Complaint: Abdominal pain History of Present Illness: The patient is a 28 F presenting with abdominal pain. She states this started 2 days ago. Pain is in her right side. She denies known injury. No history of kidney stones. She has nausea with no vomi ting. Denies diarrhea or constipation. Denies urinary complaints. Denies possibility of . No fever or other complaints. Physical Examination: Vitals are stable. Patient is afebrile. Alert no acute distress. HEENT exam is unremarkable. Neck is supple. Lungs are clear and equal bilaterally. Heart is regular rate and rhythm. Abdomen is soft right upper and lower quadrant tenderness with no rebound or guarding Extremities are unremarkable. Skin is warm and dry. Remainder of exam is unremarkable. Emergency Department Course and Treatment: CBC shows white count 12.3. Chemistries unremarkable. Liver lipase are normal. Urinalysis unremarkable. hCG negative. Patient was given IV fluids, Zofran. CT abdomen pelvis shows no demonstrated acute or significant process of the abdomen and pelvis. There was nonvisualization of her appendix. On repeat exam she has no right lower quadrant tenderness. She continues to have mild right upper quadrant tenderness with no rebound or guarding. She is advised strict return instructions should her symptoms worsen. She understands and will follow up with a primary care ph ysician. Advised return to the ED for worsening complaints. Disposition: Discharge home Impression: Abdominal pain This note was generated with [employer] dictation software. It may contain incorrect words, spelling, and punctuation that were not noted in review of the chart prior to signing ED Disposition - Plan for ED Patient: Instructions: ABDOMINAL PAIN, Unknown Cause, (Female) Prescriptions: proMETHazine tablet [Phenergan] 25 mg PO Q6H PRN PRN #10 tab PRN Reason: Nausea Prescription Printed Ondansetron [Zofran Odt] 4 mg PO Q8H PRN PRN #10 tab PRN Reason: Nausea Prescription Printed Referrals: Foreign Sykes MD [NON-STAFF] -
== END 2019-04-03 01:04 | disposition home or self-care (01) ==
PROVIDERS: Emergency Provider Emergency Medicine
DX: R10.9 Unspecified abdominal pain (principal); R11.0 Nausea; Z72.0 Tobacco use
CPT/HCPCS: 74176; 80053; 81001; 83690; 84703; 85025; 96374; 96375; 99283; A4216; J2405

== ENCOUNTER → 2021-10-30 | Outpatient (CLI) | payer MEDICAID, SELFPAY ==
[2021-11-02 18:41] LABS: HPV APTIMA, High Risk Negative (Negative)
== END | disposition home or self-care (01) ==
LOC: LABSPEC 16:08
PROVIDERS: Visit Provider Obstetrics & Gynecology
DX: Z12.4 Encounter for screening for malignant neoplasm of cervix (principal)
CPT/HCPCS: 87624; 88175; G0145

== ENCOUNTER → 2024-06-11 | Outpatient (CLI) | payer MEDICAID, SELFPAY ==
[2024-06-11 12:32] LABS: Hematocrit 47.6 % (37-47); Hemoglobin 15.3 g/dL (12.0-15.0); Mean Corp Hgb Conc 32.1 g/dL (32-36); Mean Corpuscular Hgb 28.9 pg (27.0-32.0); Mean Platelet Vol. 10.5 fl (6.2-12.0); Platelet Count 384 K/mm3 (150-450); RBC Distribution Width CV 15.4 % (11.6-14.6); Red Blood Count 5.29 M/mm3 (4.2-5.4); White Blood Count 14.2 K/mm3 (4.4-11.0)
[2024-06-11 12:52] LABS: ALB/GLOB Ratio 0.8 RATIO (0.9-2.4); AST(SGOT) 9 U/L (15-37); Alanine Aminotransfer ALT/SGPT 28 U/L (13-56); Albumin, Serum 3.6 g/dL (3.2-5.0); Alkaline Phosphatase 78 U/L (45-117); Anion Gap 7 (5-15); BUN 7 mg/dL (7-18); BUN/Creat Ratio 9.8 RATIO (10-20); Calcium,Total 9.4 mg/dL (8.5-10.1); Chloride 105 mmol/L (98-107); Cholesterol 202 mg/dL (200); Creatinine, Serum 0.72 mg/dL (0.55-1.02); EST Glomerular Filtration Rate 99 mL/min (>60); Est Glom Filt Rate - Afr Amer 119 mL/min (>60); Globulin 4.5 g/dL (2.2-4.2); Glucose 102 mg/dL (74-106); High Density Lipoprotein 37 mg/dL; Potassium 3.7 mmol/L (3.5-5.1); Protein, Total 8.1 g/dL (6.4-8.2); Sodium Level 137 mmol/L (136-145); Triglycerides 172 mg/dL; Very Low Density Lipoprotein 34 mg/dL (5-40)
[2024-06-11 13:44] LABS: Hemoglobin A1c 5.6 % (3.8-5.6)
[2024-06-11 14:37] LABS: Vitamin D,25 Hydroxy 10.1 ng/mL
== END | disposition home or self-care (01) ==
LOC: MFPLAB 10:03
PROVIDERS: PCP Family Medicine; Referring Provider Family Medicine; Visit Provider Family Medicine
DX: I10 Essential (primary) hypertension (principal); R53.83 Other fatigue; Z13.1 Encounter for screening for diabetes mellitus
CPT/HCPCS: 36415; 80053; 80061; 82306; 83036; 84443; 85027

== ENCOUNTER → 2024-09-09 | Outpatient (CLI) | payer MEDICAID, SELFPAY | END | disposition home or self-care (01) | LOC: SL 11:10 | PROVIDERS: PCP Family Medicine; Referring Provider Nurse Practitioner Acute Care; Visit Provider Nurse Practitioner Acute Care | DX: G47.33 Obstructive sleep apnea (adult) (pediatric) (principal); G47.10 Hypersomnia, unspecified | CPT/HCPCS: 95806 ==

== ENCOUNTER → 2024-10-13 | Outpatient (CLI) | payer MEDICAID, SELFPAY | END | disposition home or self-care (01) | LOC: SL 17:42 | PROVIDERS: PCP Family Medicine; Referring Provider Nurse Practitioner Acute Care; Visit Provider Nurse Practitioner Acute Care | DX: Z04.89 Encounter for examination and observation for other specified reasons (principal) ==

== ENCOUNTER → 2025-02-12 | Outpatient (CLI) | payer MEDICAID, SELFPAY ==
--- NOTE | 2025-02-12 09:58 | RAD_ITS ---
PROCEDURE: L/S SPINE W BEND MIN 6 VW 02/12/2025 REASON FOR EXAM: BACK PAIN R/O SCOLIOSIS 2 VIEWS TECHNIQUE: Procedure Code: [id number] Modality: DX Procedure: L/S SPINE W BEND MIN 6 VW COMPARISON: None. FINDINGS: BONES: No fracture or focal osseous lesion. Alignment is anatomic in the sagittal projection and is maintained throughout flexion and extension. No vertebral abnormalities noted. There is convex left curvature of the lower thoracic spine, with the apex of the curve at the T11 vertebral body. Using the Silver technique, and measuring from the top of the T9 to the bottom of the L1 vertebral bodies, this angle measures approximately 6 degrees. There is convex right curvature of the thoracolumbar spine, with the apex of the curve at the L1 vertebral body. Using the Silver technique, and measuring from the top of the T12 to the bottom of the L3 vertebral bodies, this angle measures approximately 7 degrees. DISC/DEGENERATIVE CHANGES: Disc spaces are preserved. SOFT TISSUES: No acute abnormality seen. RAD/L/S Spine w Bend Min 6 Vw IMPRESSION: 1. No acute abnormality seen. No evidence of spinal instability. 2. S-shaped spinal asymmetry of the thoracolumbar spine. Reading Location: [id number]
== END | disposition home or self-care (01) ==
PROVIDERS: PCP Family Medicine; Referring Provider Family Medicine; Visit Provider Family Medicine
DX: M54.9 Dorsalgia, unspecified (principal)
CPT/HCPCS: 72114

== ENCOUNTER → 2025-03-15 | Outpatient (CLI) | payer MEDICAID, SELFPAY ==
--- NOTE | 2025-03-15 09:48 | ECHOD_ITS ---
Reason For Study Reason For Study: CHEST PAIN Procedure This was a 2D Doppler, Color Flow transthoracic echocardiogram. The study was technically difficult. Exam performed in department. Left Ventricle Normal left ventricle. Left ventricular systolic function is normal. The left ventricular ejection fraction is 60 %. Stage 1 diastolic dysfunction. No regional wall motion abnormalities noted. Right Ventricle Normal RV size. Normal systolic function. Atria Normal left atrium. Normal right atrium. Mitral Valve Normal mitral valve. Tricuspid Valve Normal tricuspid valve. Aortic Valve Trisinus/trileaflet aortic valve. Pulmonic Valve Normal pulmonic valve. Great Vessels Normal aortic root. The pulmonary artery is normal size. Inferior vena cava collapse with respiration. Pericardium/Pleural No pericardial effusion. MMode/2D Measurements & Calculations LVIDd: 3.6 cm IVSd: 0.96 cm Ao root diam: 2.9 cm LVIDs: 2.4 cm LVPWd: 0.93 cm RVDd: 2.6 cm FS: 32.0 % LAV(MOD-bp): 31.4 ml LVAd ap4: 27.1 cm2 LVAd ap2: 25.1 cm2 LAV(MOD-bp) Indexed: 15.0 ml/m2 LVLd ap4: 7.6 cm LVLd ap2: 7.4 cm LAV(MOD-sp2): 24.0 ml EDV(MOD-sp4): 81.3 ml EDV(MOD-sp2): 72.0 ml LAV(MOD-sp4): 28.9 ml EDV(sp4-el): 82.3 ml EDV(sp2-el): 71.8 ml LVAs ap4: 12.9 cm2 LVAs ap2: 12.4 cm2 LVLs ap4: 6.3 cm LVLs ap2: 6.0 cm ESV(MOD-sp4): 23.4 ml ESV(MOD-sp2): 21.6 ml ESV(sp4-el): 22.6 ml ESV(sp2-el): 21.8 ml EF(MOD-sp4): 71.2 % EF(MOD-sp2): 69.9 % EF(sp4-el): 72.6 % SV(MOD-sp4): 58.0 ml SV(MOD-sp2): 50.4 ml SV(sp4-el): 59.8 ml SI(MOD-sp4): 27.6 ml/m2 SI(MOD-sp2): 24.0 ml/m2 LA A4 area: 13.9 cm2 LA dimension(2D): 2.8 cm RA A4 area: 11.1 cm2 TAPSE: 1.3 cm Time Measurements MV dec time: 0.16 sec Doppler Measurements & Calculations MV E max ori: 58.4 cm/sec Lat Peak E' Ori: 10.5 cm/sec Med Peak E' Ori: 7.6 cm/sec MV A max ori: 67.0 cm/sec E/E' lat: 5.6 E/E' med: 7.7 MV E/A: 0.87 Ao V2 max: 95.2 cm/sec LV V1 max: 78.2 cm/sec MV dec slope: 373.1 cm/sec2 Ao max P.6 mmHg LV V1 max P.4 mmHg Ao V2 mean: 73.1 cm/sec LV V1 mean P.4 mmHg Ao mean P.3 mmHg LV V1 mean: 57.2 cm/sec Ao V2 VTI: 15.9 cm LV V1 VTI: 13.5 cm AV (velocity ratio): 0.85 PA V2 max: 94.7 cm/sec ECHO/Echo Complete Interpretation Summary Normal left ventricle. Left ventricular systolic function is normal. The left ventricular ejection fraction is 60 %. Stage 1 diastolic dysfunction. Structurally normal valves. Ordering Physician: Tiffany Montoya Referring Physician: Tiffany Montoya Performed By: Brayden Hua RDCS
== END | disposition home or self-care (01) ==
LOC: CVS 09:45
PROVIDERS: PCP Family Medicine; Referring Provider Family Medicine; Visit Provider Family Medicine
DX: R07.9 Chest pain, unspecified (principal)
CPT/HCPCS: 93306; 97161